=== PATIENT | female | born 1955 ===

== ENCOUNTER 2017-08-15 13:11 | Observation (INO) | payer MEDICAID, OTHER ==
[2017-08-15 15:38] LABS: BASO # 0.1 K/uL (0.0-0.2); BASO % 0.8 % (0.0-2.0); EOS # 0.3 K/uL (0.0-0.7); EOS % 2.3 % (0.0-4.0); LYMPH % 14.1 % (20.0-40.0); MEAN CELL VOLUME 86.6 fl (81.0-99.0); MEAN CORPUSCULAR HEMOGLOBIN 29.3 pg (27.0-31.0); MEAN CORPUSCULAR HGB CONC 33.9 g/dL (33.0-37.0); MEAN PLATELET VOLUME 8.7 fl (7.2-11.7); MONO % 6.9 % (0.0-10.0); NEUT # 10.6 K/uL (1.8-7.0); NEUT % 75.9 % (50.0-75.0); NRBC % 0.1 % (0.0-0.0); RBC 4.76 Mil/uL (3.80-5.20); RED CELL DISTRIBUTION WIDTH 14.2 % (11.5-14.5)
[2017-08-15 15:44] LABS: ALB/GLOB RATIO 1.3 (1.0-2.1); ALBUMIN 4.8 g/dL (3.5-5.0); ALT/SGPT 56 U/L (9-52); AST/SGOT 30 U/L (14-36); BLOOD UREA NITROGEN 18 mg/dl (7-17); GFR AFRICAN-AMERICAN > 60; GFR NON-AFRICAN AMERICAN > 60
[2017-08-15 16:04] LABS: SQUAMOUS EPITHIAL 1 /hpf (0-5); URINE AMORPHOUS SEDIMENT RARE /ul (<OCC); URINE BACTERIA RARE (<OCC); URINE BILIRUBIN NEGATIVE (NEGATIVE); URINE BLOOD MODERATE (NEGATIVE); URINE CLARITY CLOUDY (Clear); URINE COLOR YELLOW (YELLOW); URINE GLUCOSE (UA) NEG (Normal); URINE LEUKOCYTE ESTERASE TRACE Leu/uL (Negative); URINE PROTEIN NEGATIVE (NEGATIVE); URINE UROBILINOGEN 0.2-1.0 mg/dL (0.2-1.0)
--- NOTE | 2017-08-15 16:37 | ED PDOC ---
HPI: Psych/Substance Abuse Time Seen by Provider: 08/15/17 13:14 Chief Complaint (Nursing): Psychiatric Evaluation NIHSS Stroke Scale - Date/Time Evaluation Performed When Was NIHSS Performed: Baseline - How Severe is the Stroke Level of Consciousness: 0=Alert LOC to Questions: 0=Both comments correct LOC to commands: 0=Obeys both correctly Best Gaze: 0=Normal Visual: 0=No visual loss Facial: 0=Normal Motor Arm - Left: 0=No drift Motor Arm - Right: 0=No drift Motor Leg - Left: 0=No drift Motor Leg - Right: 0=No drift Limb Ataxia: 0=Absent Sensory: 0=Normal Best Language: 0=No aphasia Dysarthia: 0=Normal articulation Extinction & Inattention (Neglect): 0=Normal, no object Score: 0 rTPA Inclusion/Exclusion - Refusal of Treatment Patient Refused Treatment: No - Inclusion Criteria for Altepase Patient is 18 years or Older: Yes The Clinical Diagnosis of Ischemic Stroke That is Causing a Potentially Disabling Neurological Deficit: No Time of Onset is Well Established to be Less Than 270 Minute Before Treatment Would Begin: No Past Medical History Vital Signs: Last Vital Signs Temp 98.0 F 08/15/17 13:14 Pulse 97 H 08/15/17 13:14 Resp 18 08/15/17 13:14 BP 155/80 H 08/15/17 13:14 Pulse Ox 95 08/15/17 13:14 - Medical History PMH: Anxiety, Depression Denies: Chronic Kidney Disease - Immunization History Hx Tetanus Toxoid Vaccination: No Hx Influenza Vaccination: No Hx Pneumococcal Vaccination: No - Home Medications Home Medications: Ambulatory Orders Medication Instructions Recorded Benztropine Mesylate [Cogentin] 1 tab PO DAILY 12/19/13 Risperidone [Risperdal] 1 tab PO DAILY 12/19/13 Sertraline [Zoloft] 1 tab PO DAILY 12/19/13 - Allergies Allergies/Adverse Reactions: Allergies Allergy/AdvReac Type Severity Reaction Status Date / Time No Known Allergies Allergy Verified 12/19/13 11:43 - Laboratory Results Result Diagrams: 08/15/17 15:30 08/15/17 15:30 - ECG O2 Sat by Pulse Oximetry: 95 Disposition - Clinical Impression Clinical Impression: Altered mental status - Patient ED Disposition Is Patient to be Admitted: Yes - Disposition Forms: Possible Web ([place]i)
--- NOTE | 2017-08-15 21:59 | CT ---
EXAM: CT Head Without Intravenous Contrast CLINICAL HISTORY: 62 years old, female; Screening exam; Additional info: AMS TECHNIQUE: Axial computed tomography images of the head/brain without intravenous contrast. All CT scans at this facility use one or more dose reduction techniques, viz.: automated exposure control; ma/kV adjustment per patient size (including targeted exams where dose is matched to indication; i.e. head); or iterative reconstruction technique. Coronal and sagittal reformatted images were created and reviewed. COMPARISON: No relevant prior studies available. FINDINGS: Brain: Bilateral white matter changes. This is nonspecific and may include microangiopathic disease, small lacunae of indeterminate chronicity, chronic infarcts and/or encephalomalacia. No hemorrhage. No edema. Ventricles: No hydrocephalus. Bones: Skull is intact. Sinuses: No acute sinusitis. Mastoid air cells: No mastoid effusion. IMPRESSION: No CT evidence of acute intracranial abnormality. Bilateral white matter changes. This is nonspecific and may include microangiopathic disease, small lacunae of indeterminate chronicity, chronic infarcts and/or encephalomalacia. Acute infarcts/early ischemic changes may not be detectable by this modality; MRI is more sensitive in detecting acute ischemia.
--- NOTE | 2017-08-16 10:37 | CARD ---
APPROVED REPORT EKG Measurement Heart [id number] <Conclusion> Normal sinus rhythm Minimal voltage criteria for LVH, may be normal variant Borderline ECG
--- NOTE | 2017-08-16 23:32 | CP.PCM.HP ---
History of Present Illness - History of Present Illness History of Present Illness: This is a 62 y/o female admitted for altered mental status She was initially seen at [facility] and was referred to [facility] but noted to have more altered mentation hence admitted. She has been on sertraline Cogentin and risperdal. Past Patient History - Past Medical History & Family History Past Medical History?: No - Past Social History Smoking Status: Never Smoked - CARDIAC Hx Cardiac Disorders: No - PULMONARY Hx Respiratory Disorders: No - NEUROLOGICAL Hx Neurological Disorder: No - HEENT Hx HEENT Problems: No - RENAL Hx Chronic Kidney Disease: No - ENDOCRINE/METABOLIC Hx Endocrine Disorders: No - HEMATOLOGICAL/ONCOLOGICAL Hx Blood Disorders: No - INTEGUMENTARY Hx Dermatological Problems: No - MUSCULOSKELETAL/RHEUMATOLOGICAL Hx Musculoskeletal Disorders: No Hx Falls: No - GASTROINTESTINAL Hx Gastrointestinal Disorders: No - GENITOURINARY/GYNECOLOGICAL Hx Genitourinary Disorders: No - PSYCHIATRIC Hx Psychophysiologic Disorder: Yes Hx Anxiety: Yes Hx Depression: Yes Hx Schizophrenia: Yes Hx Substance Use: No - SURGICAL HISTORY Hx Surgeries: Yes Hx Mastectomy: Yes (left side) - ANESTHESIA Hx Anesthesia: Yes Hx Anesthesia Reactions: No Meds Allergies/Adverse Reactions: Allergies Allergy/AdvReac Type Severity Reaction Status Date / Time No Known Allergies Allergy Verified 12/19/13 11:43 Results - Vital Signs Recent Vital Signs: Last Vital Signs Temp 98.9 F 08/16/17 19:13 Pulse 99 H 08/16/17 19:13 Resp 20 08/16/17 19:13 BP 154/83 H 08/16/17 19:13 Pulse Ox 95 08/16/17 19:13 - Labs Result Diagrams: 08/15/17 15:30 08/15/17 15:30
--- NOTE | 2017-08-17 11:38 | CP.PCM.PN ---
Subjective - Date & Time of Evaluation Date of Evaluation: 08/17/17 Time of Evaluation: 11:37 - Subjective Subjective: Patient complains of insomnia Objective - Vital Signs/Intake and Output Vital Signs (last 24 hours): Temp Pulse Resp BP Pulse Ox 98.4 F 90 18 147/80 97 08/17/17 08:00 08/17/17 08:00 08/17/17 08:00 08/17/17 08:00 08/17/17 08:00 - Medications Medications: Current Medications Lorazepam (Ativan) 0.5 mg PO Q8H PRN PRN Reason: Anxiety Last Admin: 08/16/17 16:26 Dose: 0.5 mg - Labs Labs: 08/15/17 15:30 08/15/17 15:30
[2017-08-17 12:19] VITALS: O2SAT 96
--- NOTE | 2017-08-17 12:35 | CP.PCM.CON ---
History of Present Illness - History of Present Illness History of Present Illness: information obtained from pt and her sister upon pt consent pt is a 62ys old female with previous diagnosis of depression, reportedly started five years ago when her only son who suffers from mental retardation, left the house to [place] and pt was very worried and depressed, at that time pt was admitted to [facility] , since then pt has been in psychiatric treatment , pt was diagnosed with breast cancer a year ago, had a mastectomy and currently recieving chemotherapy, since then pt became increasingly depressed, poor sleep, poor appetite, low energy and lack of interest, pt was following up with Dr Lin but as per sister has not been compliant with medication for at least two months, on day pt presented to ER she was experiencing suicidal ideations with plan to cut her wrist , pt reported increased anxiety mainly due to inability to sleep, as per sister she has been presenting with memory deficits past year, possible pseudodementia. no reported manic symptoms and no reported substance use Past Patient History - Past Medical History & Family History Past Medical History?: No - Past Social History Smoking Status: Never Smoked - CARDIAC Hx Cardiac Disorders: No - PULMONARY Hx Respiratory Disorders: No - NEUROLOGICAL Hx Neurological Disorder: No - HEENT Hx HEENT Problems: No - RENAL Hx Chronic Kidney Disease: No - ENDOCRINE/METABOLIC Hx Endocrine Disorders: No - HEMATOLOGICAL/ONCOLOGICAL Hx Blood Disorders: No - INTEGUMENTARY Hx Dermatological Problems: No - MUSCULOSKELETAL/RHEUMATOLOGICAL Hx Musculoskeletal Disorders: No Hx Falls: No - GASTROINTESTINAL Hx Gastrointestinal Disorders: No - GENITOURINARY/GYNECOLOGICAL Hx Genitourinary Disorders: No - PSYCHIATRIC Hx Psychophysiologic Disorder: Yes Hx Anxiety: Yes Hx Depression: Yes Hx Schizophrenia: Yes Hx Substance Use: No - SURGICAL HISTORY Hx Surgeries: Yes Hx Mastectomy: Yes (left side) - ANESTHESIA Hx Anesthesia: Yes Hx Anesthesia Reactions: No Meds Allergies/Adverse Reactions: Allergies Allergy/AdvReac Type Severity Reaction Status Date / Time No Known Allergies Allergy Verified 12/19/13 11:43 - Medications Medications: Current Medications Lorazepam (Ativan) 0.5 mg PO Q8H PRN PRN Reason: Anxiety Last Admin: 08/16/17 16:26 Dose: 0.5 mg Physical Exam - Psychiatric Exam Additional comments: interview conducted through translation pt seen in bed, partial eye contact, speech underproductive and slow, depressed mood and anxious affect speech soft and slow with paucity , thought process showing some thought blocking continues to have suicida ideation if she leaves hospital by cutting wrist, denied homicidal ideations alert awake oriented to person and partially to place Results - Vital Signs Recent Vital Signs: Last Vital Signs Temp 98.4 F 08/17/17 08:00 Pulse 90 08/17/17 08:00 Resp 18 08/17/17 08:00 BP 147/80 08/17/17 08:00 Pulse Ox 97 08/17/17 08:00 - Labs Result Diagrams: 08/15/17 15:30 08/15/17 15:30 Assessment & Plan - Assessment and Plan (Free Text) Assessment: major depression recurrent severe rule out /neurocognitive disorder due to depression mood disorder with depressive features due to medical condition Plan: pt at current mental status continues to verbalize suicidal thoughts with plan to cut her wrist due to inability to sleep continue 1:1 precautions for suicidal risk transfer pt to psychiatry for stabilization upon medical clearence
[2017-08-17 12:46] LABS: HEMOGLOBIN 12.5 g/dL (12.0-16.0); MEAN CELL VOLUME 85.9 fl (81.0-99.0); MEAN CORPUSCULAR HGB CONC 33.7 g/dL (33.0-37.0); RBC 4.33 Mil/uL (3.80-5.20); RED CELL DISTRIBUTION WIDTH 13.8 % (11.5-14.5); WHITE BLOOD COUNT 12.8 K/uL (4.8-10.8)
[2017-08-17 13:09] LABS: BLOOD UREA NITROGEN 15 mg/dl (7-17); CALCIUM 9.6 mg/dL (8.4-10.2); GFR AFRICAN-AMERICAN > 60; GFR NON-AFRICAN AMERICAN > 60
--- NOTE | 2017-08-17 15:27 | RAD ---
HISTORY: leukocytosis COMPARISON: 11/29/2012 TECHNIQUE: Chest PA and lateral FINDINGS: LUNGS: No active pulmonary disease. PLEURA: No significant pleural effusion identified. No pneumothorax apparent. CARDIOVASCULAR: No radiographic findings to suggest acute or significant cardiovascular disease. Venous access catheter in satisfactory position. OSSEOUS STRUCTURES: No significant abnormalities. VISUALIZED UPPER ABDOMEN: Normal. OTHER FINDINGS: Prior left mastectomy and axillary node dissection. IMPRESSION: No active disease. No significant interval change.
[2017-08-17 16:12] VITALS: BP 135/83; PULSE 82; RESP 17; TEMP 98.3
== END 2017-08-17 18:20 ==
LOC: H.ER 13:11 → H.ERHOLD 16:28 → H.TEL 22:57
PROVIDERS: ADMIT Family Medicine; ATTEND Family Medicine
DX: F33.2 Major depressive disorder, recurrent severe without psychotic features (principal); G47.00 Insomnia, unspecified; F41.9 Anxiety disorder, unspecified; C50.919 Malignant neoplasm of unspecified site of unspecified female breast; F06.31 Mood disorder due to known physiological condition with depressive features; R45.851 Suicidal ideations; Z91.14 Patient's other noncompliance with medication regimen
CPT/HCPCS: 36415; 70450; 71046; 80048; 80053; 81003; 85025; 85027; 87040; 93005; 96372; 99285; G0378; J1630; J2060

== ENCOUNTER 2017-08-17 18:53 | Inpatient (IN) | payer MEDICAID ==
[2017-08-17] MEDS ORDERED: Bismuth Subsalicylate 262 mg/15 ml Sus (240 ml) PO PRN (19:35)
[2017-08-17] MEDS ORDERED: Alum-Mag Hydrox-Simethicone Susp (30 mL) PO PRN (19:35)
[2017-08-17] MEDS ORDERED: Magnesium Hydroxide Susp 30 ml UD PO PRN (19:35)
--- NOTE | 2017-08-17 19:48 | PCM.BM ---
<TracymagdalenoJoellen - Last Filed: 08/17/17 19:53> Treatment Plan Problems - Problems identified on initial assessmt Hopelessness/Helplessness Date Initiated: 08/17/17 Time Initiated: 19:47 Assessment reference: NA Status: Active Treatment assets and liabiliti Patient Assests: cooperative, good support system, negotiates basic needs Patient Liabilities: medical problems (diagnosed with L Breast Cancer ) - Milieu Protocol Maintain good personal hygiene: daily Encourage regular showers, daily Remind patient to perform daily oral care, daily Assist patient to perform ADL's Maintain personal safety: every shift Educate patient to report safety concerns to staff, every shift Monitor environment for contraband/sharps Medication safety: Monitor for expected outcome, potential side effects: every shift, Assess barriers to learning: every shift, Assess readiness for medication education: every shift <Lisa Sutton - Last Filed: 08/18/17 09:51> - Diagnosis (1) Major depressive disorder Status: Acute Interventions: Medication management, Individual and group therapy, Psychoeducation 08/18/17 09:51 <La Camacho M - Last Filed: 08/19/17 14:06> Family Contact Family involvement: Family/SO is involved Family contact: Patient agrees to contact, Family has been contacted by patient , Telephone contact initiated by staff, Family meeting planned to review treatment plan Family contact name: Ashley - sister & Marvin- Family contacted how many times per week?: 2 - Outside Agency Dr. Chivo Lin MD Care involvment: Information-sharing Agency contact name: Dr. Riley MD Agency contact number: [phone] - Goals for Treatment Patient goals for treatment: Pt to be encouraged to attend activity and clinical groups 3-5x per week to identify at least 2 contributing factors to depression and suicide attempt. Psycho-education to be provided to patient/ family regarding benefits of medications and treatment adherence. Pt to be encouraged to participate in group milieu to develop effective coping skills to reduce depression and free of suicide ideation. Coordinate discharge resource needs by providing referral for psychiatric treatment follow up in the community. Discharge/Continuing Care - Education Needs Education Needs: Family Medication, Family Diagnosis/Disease Process, Family Coping Skills, Family Placement options, Family Community resources, Family Activities of Daily Living, Family Pain, Family Nutrition, Family Personal Hygiene/Grooming, Family Aftercare Safety Plan, Patient Medication, Patient Diagnosis/Disease Process, Patient Coping Skills, Patient Placement options, Patient Community resources, Patient Activities of Daily Living, Patient Pain, Patient Nutrition, Patient Personal Hygiene/Grooming, Patient Aftercare Safety Plan - Discharge Discharge Criteria: Tolerates medication w/o severe side effects, Free of Suicidal thoughts, Free of Homicidal thoughts, Free of agitation, Normal sleep pattern, Ability to care for self, Reduction of target symptoms Discharge to:: Home, With Family - Additional Comments 08/19/17 14:01 Pt seen and discussed in team meeting. Reason for hospitalization reviewed and discussed. Pt reported feeling depressed, anxious and "not good." Pt reported poor sleep. Pt also reported visual hallucinations of "bad spirits." Pt reported she believes in God and when she sees the "bad spirits" she devotes herself to God and prays to God. Pt identified as a practicing Hoahaoism. Pt also reported feeling paranoid at times, believing that people are laughing at her. Pt denied active SI and HI; however, reported having visions of a knife and is afraid to "kill my son and myself." When asked if she has had thoughts of hurting her son and/or herself, pt stated "No, I'm a coward." Pt reported feeling distressed because of "the bad thoughts." Pt became very tearful. Pt's medical and social issues reviewed. Pt's medications reviewed. Tx plan reviewed and discussed. Pt signed written consent for feature writer to contact her sister, Ashley and her , Marvin. Pt also provided feature writer with verbal authorization to contact Dr. Chivo Lin MD. to continue to follow case. - Treatment Team Participation Discussed with Family/SO: Yes (To be reviewed with family during family meeting scheduled for 08/19/17 2pm) Was Patient/Family/SO present at Treatment Team Meeting: Yes
[2017-08-18 06:21] LABS: HEMOGLOBIN 13.3 g/dL (12.0-16.0); MEAN CELL VOLUME 86.2 fl (81.0-99.0); MEAN CORPUSCULAR HEMOGLOBIN 29.1 pg (27.0-31.0); MEAN CORPUSCULAR HGB CONC 33.8 g/dL (33.0-37.0); RBC 4.55 Mil/uL (3.80-5.20); RED CELL DISTRIBUTION WIDTH 13.8 % (11.5-14.5); WHITE BLOOD COUNT 10.6 K/uL (4.8-10.8)
[2017-08-18 06:28] LABS: IRON 71 ug/dL (37-170)
[2017-08-18 06:30] LABS: ALB/GLOB RATIO 1.3 (1.0-2.1); ALBUMIN 4.4 g/dL (3.5-5.0); ALT/SGPT 43 U/L (9-52); AST/SGOT 25 U/L (14-36); BLOOD UREA NITROGEN 13 mg/dl (7-17); CALCIUM 9.8 mg/dL (8.4-10.2); GFR AFRICAN-AMERICAN > 60; GFR NON-AFRICAN AMERICAN > 60; HDL CHOLESTEROL 88 MG/DL (30-70)
[2017-08-18 06:38] LABS: % IRON SATURATION 22 % (20-55); TOTAL IRON BINDING CAPACITY 327 ug/dL (250-450)
[2017-08-18 06:42] LABS: LDL CHOLESTEROL 106 mg/dL (0-129)
[2017-08-18 06:44] LABS: T4 8.04 ug/dl (5.5-11.0)
[2017-08-18 07:00] LABS: FERRITIN 57.4 ng/Ml (11.1-264.0)
--- NOTE | 2017-08-18 09:59 | PCM.PSYCH ---
Initial Psychiatric Evaluation - Initial Psychiatric Evaluation Type of Admission: Voluntary Legal Status: Capacity Chief Complaint (in patient's own words): "I don't want to hurt myself." Patient's Reaction to Hospitalization: HPI: 62 yo female w/ h/o depression, non-complaint with treatment, presents with worsening depression and suicidal ideation to cut her wrists. She is able to contract for safety at this time. She feels very anxious and is worried that she will hurt herself or someone else. +Poor sleep/poor appetite/ low energy/ lack of interest. Denies AH/VH/paranoia PPHx: H/o depression and tx w/ Dr. Lin; was on Zoloft, Risperdal and Cogentin in the past; currently not compliant with treatment PMHx: Breast CA s/p mastectomy, currently receiving chemotherapy SHx: From [place]; lives w/ sister; denies drugs/etoh ALL: NKDA Current Medications: Active Medications Generic Name Dose Route Start Last Admin Trade Name Freq PRN Reason Stop Dose Admin Acetaminophen 650 mg 08/17/17 19:35 Tylenol 325mg Tab PO Q4 PRN Pain, moderate (4-7) Al Hydrox/Mg Hydrox/Simethicone 30 ml 08/17/17 19:35 Maalox Plus 30 Ml PO Q4 PRN Dyspepsia Bismuth Subsalicylate 524 mg 08/17/17 19:35 Pepto-Bismol PO Q4 PRN Diarrhea Lorazepam 0.5 mg 08/17/17 19:35 08/17/17 23:47 Ativan PO 08/31/17 19:36 0.5 mg HS PRN Administration Insomnia Lorazepam 0.5 mg 08/17/17 19:35 Ativan PO 08/31/17 19:36 Q6 PRN Anixety/Agitation Magnesium Hydroxide 30 ml 08/17/17 19:35 Milk Of Magnesia PO HS PRN Constipation Sertraline HCl 50 mg 08/18/17 09:45 Zoloft PO DAILY GREGG Past Psychiatric History - Past Psychiatric History Pertinent Medical Hx (Current Medical&Sleep Prob, Allergies): Allergies Allergy/AdvReac Type Severity Reaction Status Date / Time No Known Allergies Allergy Verified 12/19/13 11:43 Benztropine Mesylate [Cogentin] 1 tab PO DAILY 12/19/13 Risperidone [Risperdal] 1 tab PO DAILY 12/19/13 Sertraline [Zoloft] 1 tab PO DAILY 12/19/13 Review of Systems - Psychiatric Psychiatric: As Per HPI, Abnormal Sleep Pattern, Anhedonia, Anxiety, Behavioral Changes, Change in Appetite, Depression, Difficulty Concentrating, Hopelessness , Memory Loss, Mood Swings, Suicidal Ideation Mental Status Examination - Personal Presentation Personal Presentation: Looks older than stated age - Affect Affect: Constricted, Depressed - Motor Activity Motor Activity: Psychomotor Retardation - Reliability in Providing Information Reliability in Providing Information: Poor, due to altered mood, Poor, due to cognitve impairment - Speech Speech: Coherent - Mood Mood: Depressed, Anxious - Formal Thought Process Formal Thought Process: Loosening of associations - Hallucinations/Delusions Additional comments: Denies AH/VH/paranoia - Obsessions/Compulsions Obsessions: No Compulsions: No - Cognitive Functions Sensorium: Alert Judgement: Intact, as evidence by: Insight regarding need for hospitalization Memory: Recent impaired, as evidence by: Inability to recall events of the day, Recent imparied as evidence by:Inability to complete 3/3 object recall - Risk Risk: Diminished functioning - Strength & Assets Inventory Strength & Assets Inventory: Family support, Cooperative - Limitations Limitations: Decreased memory, recent DSM 5 DX - DSM 5 DSM 5 Diagnosis: Major Depressive Disorder; r/o Neurocognitive impairment - Recommended/Plan of Treatment Treatment Recommendations and Plan of Treatment: Major Depressive Disorder; r/o Neurocognitive impairment -Admit to geriatric psychiatry unit -Individual and group therapy -Medicine consult -Start Remeron 15 mg PO HS -Disposition planning -Dietary consult Projected ELOS: 5-10 days Discharge Plan and Discharge Criteria: Discharge when patient is psychiatrically stable - Smoking Cessation Smoking Cessation Initiated: No Reason for not providing: Not indicated
--- NOTE | 2017-08-18 10:21 | CP.PCM.CON ---
History of Present Illness - History of Present Illness History of Present Illness: HPI: 62 y/o woman w/ pmh of breast CA s/p mastectomy on chemotherapy, anxiety and depression admitted to psychiatry for major depression and suicidal/ homicidal ideation. Patient was discharged from [facility] after medically stabilized due to altered mental status. Patient has been non-adherent to psychiatric medication for some time. Patient expresses thoughts of harming herself or others w/ a kitchen knife. The patient reports insomnia, low energy , low appetite. The patient denies auditory/visual hallucinations or delusions. The patient denies headaches, chest pain, SOB, abdominal pain, nausea, vomiting, diarrhea, dysuria, or fever. PMD: Dr. Lin PMH: breast CA s/p left mastectomy on chemotherapy, anxiety and depression meds: see med list Allergies: NKDA PSH: left mastectomy Fam: denies SOC: denies smoking, alcohol, and drugs ROS: 12 points assessed and negative unless otherwise reported in HPI Review of Systems - Review of Systems All systems: reviewed and no additional remarkable complaints except - Constitutional Constitutional: absent: Chills, Fever - EENT Eyes: absent: Change in Vision - Cardiovascular Cardiovascular: absent: Chest Pain - Respiratory Respiratory: absent: Dyspnea - Gastrointestinal Gastrointestinal: absent: Abdominal Pain, Diarrhea, Nausea, Vomiting - Genitourinary Genitourinary: absent: Dysuria - Integumentary Integumentary: absent: Rash - Psychiatric Psychiatric: As Per HPI Past Patient History - Past Medical History & Family History Past Medical History?: No - Past Social History Smoking Status: Never Smoked - CARDIAC Hx Cardiac Disorders: No - PULMONARY Hx Respiratory Disorders: No - NEUROLOGICAL Hx Neurological Disorder: No - HEENT Hx HEENT Problems: No - RENAL Hx Chronic Kidney Disease: No - ENDOCRINE/METABOLIC Hx Endocrine Disorders: No - HEMATOLOGICAL/ONCOLOGICAL Hx Blood Disorders: No - INTEGUMENTARY Hx Dermatological Problems: No - MUSCULOSKELETAL/RHEUMATOLOGICAL Hx Musculoskeletal Disorders: No Hx Falls: No - GASTROINTESTINAL Hx Gastrointestinal Disorders: No - GENITOURINARY/GYNECOLOGICAL Hx Genitourinary Disorders: No - PSYCHIATRIC Hx Psychophysiologic Disorder: Yes Hx Anxiety: Yes Hx Depression: Yes Hx Schizophrenia: Yes Hx Substance Use: No - SURGICAL HISTORY Hx Surgeries: Yes Hx Mastectomy: Yes (left side) - ANESTHESIA Hx Anesthesia: Yes Hx Anesthesia Reactions: No Meds Allergies/Adverse Reactions: Allergies Allergy/AdvReac Type Severity Reaction Status Date / Time No Known Allergies Allergy Verified 12/19/13 11:43 - Medications Medications: Current Medications Acetaminophen (Tylenol 325mg Tab) 650 mg PO Q4 PRN PRN Reason: Pain, moderate (4-7) Al Hydrox/Mg Hydrox/Simethicone (Maalox Plus 30 Ml) 30 ml PO Q4 PRN PRN Reason: Dyspepsia Bismuth Subsalicylate (Pepto-Bismol) 524 mg PO Q4 PRN PRN Reason: Diarrhea Lorazepam (Ativan) 0.5 mg PO HS PRN PRN Reason: Insomnia Stop: 08/31/17 19:36 Last Admin: 08/17/17 23:47 Dose: 0.5 mg Lorazepam (Ativan) 0.5 mg PO Q6 PRN PRN Reason: Anixety/Agitation Stop: 08/31/17 19:36 Magnesium Hydroxide (Milk Of Magnesia) 30 ml PO HS PRN PRN Reason: Constipation Mirtazapine (Remeron) 15 mg PO HS GREGG Physical Exam - Constitutional Appears: Non-toxic, No Acute Distress - Head Exam Head Exam: ATRAUMATIC, NORMAL INSPECTION, NORMOCEPHALIC - Eye Exam Eye Exam: Normal appearance - ENT Exam ENT Exam: Mucous Membranes Moist - Neck Exam Neck exam: Positive for: Full Rom. Negative for: Tenderness - Respiratory Exam Respiratory Exam: Clear to Auscultation Bilateral. absent: Accessory Muscle Use , Decreased Breath Sounds, Rales, Rhonchi, Wheezes, Respiratory Distress - Cardiovascular Exam Cardiovascular Exam: REGULAR RHYTHM. absent: Tachycardia - GI/Abdominal Exam GI & Abdominal Exam: Normal Bowel Sounds, Soft. absent: Distended, Tenderness - Extremities Exam Extremities exam: Negative for: calf tenderness, pedal edema, tenderness - Neurological Exam Neurological exam: Alert, Oriented x3 - Psychiatric Exam Psychiatric exam: Depressed, Flat Affect, Suicidal Ideation - Skin Skin Exam: Dry, Intact, Normal Color, Warm Results - Vital Signs Recent Vital Signs: Last Vital Signs Temp 97.5 F L 08/18/17 05:59 Pulse 73 08/18/17 05:59 Resp 19 08/18/17 05:59 BP 150/78 08/18/17 05:59 Pulse Ox - Labs Result Diagrams: 08/18/17 05:30 08/18/17 05:30 Labs: Laboratory Results - last 24 hr 08/18/17 08/18/17 08/18/17 05:30 05:30 05:30 WBC 10.6 RBC 4.55 Hgb 13.3 Hct 39.3 MCV 86.2 MCH 29.1 MCHC 33.8 RDW 13.8 Plt Count 303 Sodium 135 Potassium 4.1 Chloride 96 L Carbon Dioxide 25 Anion Gap 18 BUN 13 Creatinine 0.6 L Est GFR ( Amer) > 60 Est GFR (Non-Af Amer) > 60 Random Glucose 120 H Calcium 9.8 Iron 71 TIBC 327 % Saturation 22 Ferritin 57.4 Total Bilirubin 0.7 AST 25 ALT 43 Alkaline Phosphatase 90 Total Protein 7.8 Albumin 4.4 Globulin 3.4 Albumin/Globulin Ratio 1.3 Triglycerides 74 Cholesterol 229 H LDL Cholesterol Direct 106 HDL Cholesterol 88 H Vitamin B12 340 Free T4 Thyroxine (T4) 8.04 TSH 3rd Generation 1.91 08/18/17 05:30 WBC RBC Hgb Hct MCV MCH MCHC RDW Plt Count Sodium Potassium Chloride Carbon Dioxide Anion Gap BUN Creatinine Est GFR ( Amer) Est GFR (Non-Af Amer) Random Glucose Calcium Iron TIBC % Saturation Ferritin Total Bilirubin AST ALT Alkaline Phosphatase Total Protein Albumin Globulin Albumin/Globulin Ratio Triglycerides Cholesterol LDL Cholesterol Direct HDL Cholesterol Vitamin B12 Free T4 1.18 Thyroxine (T4) TSH 3rd Generation Assessment & Plan (1) Suicidal ideation Status: Acute (2) Major depressive disorder Status: Acute - Assessment and Plan (Free Text) Plan: c/w present management as per psychiatry afebrile, non-tachycardic, normotensive c/w psychotherapy monitor for acute changes
[2017-08-18 13:03] LABS: FOLATE 10.6 ng/mL
[2017-08-18 17:06] VITALS: BMI 21.2
--- NOTE | 2017-08-19 08:26 | CP.PCM.PN ---
Subjective - Date & Time of Evaluation Date of Evaluation: 08/19/17 Time of Evaluation: 09:14 - Subjective Subjective: Patient seen and examined this morning at bedside w/ Dr. Samaniego. There are no acute events overnight, NAD. Patient is in a better mood today. Patient ate breakfast and was able to sleep. The patient has no other complaints. Objective - Vital Signs/Intake and Output Vital Signs (last 24 hours): Temp Pulse Resp BP Pulse Ox 97.5 F L 81 19 137/76 08/19/17 06:00 08/19/17 06:00 08/19/17 06:00 08/19/17 06:00 - Medications Medications: Current Medications Acetaminophen (Tylenol 325mg Tab) 650 mg PO Q4 PRN PRN Reason: Pain, moderate (4-7) Al Hydrox/Mg Hydrox/Simethicone (Maalox Plus 30 Ml) 30 ml PO Q4 PRN PRN Reason: Dyspepsia Bismuth Subsalicylate (Pepto-Bismol) 524 mg PO Q4 PRN PRN Reason: Diarrhea Lorazepam (Ativan) 0.5 mg PO HS PRN PRN Reason: Insomnia Stop: 08/31/17 19:36 Last Admin: 08/17/17 23:47 Dose: 0.5 mg Lorazepam (Ativan) 0.5 mg PO Q6 PRN PRN Reason: Anixety/Agitation Stop: 08/31/17 19:36 Last Admin: 08/18/17 10:12 Dose: 0.5 mg Magnesium Hydroxide (Milk Of Magnesia) 30 ml PO HS PRN PRN Reason: Constipation Mirtazapine (Remeron) 15 mg PO HS GREGG Last Admin: 08/18/17 21:16 Dose: 15 mg - Labs Labs: 08/18/17 05:30 08/18/17 05:30 - Constitutional Appears: Non-toxic, No Acute Distress - Head Exam Head Exam: ATRAUMATIC, NORMAL INSPECTION, NORMOCEPHALIC - Eye Exam Eye Exam: Normal appearance - ENT Exam ENT Exam: Mucous Membranes Moist - Neck Exam Neck Exam: Full ROM. absent: Tenderness - Respiratory Exam Respiratory Exam: Clear to Ausculation Bilateral. absent: Accessory Muscle Use , Decreased Breath Sounds, Rales, Rhonchi, Wheezes, Respiratory Distress - Cardiovascular Exam Cardiovascular Exam: REGULAR RHYTHM. absent: Tachycardia - GI/Abdominal Exam GI & Abdominal Exam: Soft, Normal Bowel Sounds. absent: Distended, Tenderness - Extremities Exam Extremities Exam: absent: Calf Tenderness, Pedal Edema, Tenderness - Neurological Exam Neurological Exam: Alert, Awake, Normal Gait, Oriented x3 - Skin Skin Exam: Dry, Intact, Normal Color, Warm Assessment and Plan (1) Suicidal ideation Status: Acute (2) Major depressive disorder Status: Acute - Assessment and Plan (Free Text) Plan: c/w present management as per psychiatry afebrile, non-tachycardic, normotensive c/w psychotherapy monitor for acute changes
--- NOTE | 2017-08-19 10:21 | PCM.PYCHPN ---
Psychiatric Progress Note - Psychiatric Progress Note Patient seen today, length of contact: Patient evaluated, case discussed with team, chart reviewed Patient Chief Complaint: "I don't want to hurt myself." Problems Identified/Issues Discussed: Patient continues to report feeling depressed. She is worried that she will try to harm herself or someone else, but denies active ideation/plan/intent. She reports that she sees bad spirits and knives. She is tearful, labile and non-linear at times during the conversation. She reports that Remeron cause bucal tingling, so we discussed stopping this medication and restarting her on Zoloft. We also discussed starting Seroquel. Medication Change: Yes (Stop Remeron, start Seroquel and Zoloft) Medical Record Reviewed: Yes Consults ordered or reviewed: Medicine consult Mental Status Examination - Cognitive Function Orientation: Person, Place, Situation, Time ("2017") Memory: Impaired Association: Loose Fund of Knowledge: WNL Decription of patient's judgement and insights: Poor I/J - Mood Mood: Depressed, Anxious - Affect Affect: Constricted, Depressed - Formal Thought Process Formal Thought Process: Hallucinations, Loosening of associations Psychotic Thoughts and Behaviors: +VH - Suicidal Ideation Suicidal Ideation: No - Homicidal Ideation Homicidal Ideation: No Goal/Treatment Plan - Goal/Treatment Plan Need for Continued Stay: Remain at risks for inpatient hospitalization, Severe depression anxiety, Discharge may exacerbated symptoms Progress Toward Problem(s) and Goals/Treatment Plan: Major Depressive Disorder w/ Psychotic Features; r/o Neurocognitive impairment -Individual and group therapy -Medicine consult -Stop Remeron; Start Zoloft and Seroquel -Disposition planning -Obtain collateral history -Dietary consult Estimated Date of D/C: 08/24/17
[2017-08-20 07:45] LABS: BASO # 0.1 K/uL (0.0-0.2); BASO % 0.9 % (0.0-2.0); EOS # 0.2 K/uL (0.0-0.7); EOS % 1.6 % (0.0-4.0); HEMOGLOBIN 12.3 g/dL (12.0-16.0); LYMPH # 1.8 K/uL (1.0-4.3); LYMPH % 18.7 % (20.0-40.0); MEAN CELL VOLUME 85.4 fl (81.0-99.0); MEAN CORPUSCULAR HEMOGLOBIN 29.2 pg (27.0-31.0); MEAN CORPUSCULAR HGB CONC 34.2 g/dL (33.0-37.0); MEAN PLATELET VOLUME 8.9 fl (7.2-11.7); MONO # 0.8 K/uL (0.0-0.8); MONO % 7.7 % (0.0-10.0); NEUT # 7.1 K/uL (1.8-7.0); NEUT % 71.1 % (50.0-75.0); RBC 4.21 Mil/uL (3.80-5.20); RED CELL DISTRIBUTION WIDTH 13.9 % (11.5-14.5); WHITE BLOOD COUNT 9.9 K/uL (4.8-10.8)
[2017-08-20 08:05] LABS: ALB/GLOB RATIO 1.3 (1.0-2.1); ALT/SGPT 43 U/L (9-52); AST/SGOT 26 U/L (14-36); BLOOD UREA NITROGEN 16 mg/dl (7-17); CALCIUM 9.4 mg/dL (8.4-10.2); GFR AFRICAN-AMERICAN > 60; GFR NON-AFRICAN AMERICAN > 60
--- NOTE | 2017-08-20 12:28 | PCM.PYCHPN ---
Psychiatric Progress Note - Psychiatric Progress Note Patient seen today, length of contact: Patient evaluated, case discussed with team, chart reviewed Patient Chief Complaint: "I don't want to hurt myself." Problems Identified/Issues Discussed: Patient continues to report feeling depressed. No current ideation to harm self or others. No adverse effects to medications reported. +Intermittent VH of spirits. Medication Change: No Medical Record Reviewed: Yes Consults ordered or reviewed: Medicine consult Mental Status Examination - Cognitive Function Orientation: Person, Place, Situation, Time ("2017") Memory: Impaired Association: Loose Fund of Knowledge: WNL Decription of patient's judgement and insights: Poor I/J - Mood Mood: Depressed, Anxious - Affect Affect: Constricted, Depressed - Formal Thought Process Formal Thought Process: Hallucinations, Loosening of associations Psychotic Thoughts and Behaviors: +VH - Suicidal Ideation Suicidal Ideation: No - Homicidal Ideation Homicidal Ideation: No Goal/Treatment Plan - Goal/Treatment Plan Need for Continued Stay: Remain at risks for inpatient hospitalization, Severe depression anxiety, Discharge may exacerbated symptoms Progress Toward Problem(s) and Goals/Treatment Plan: Major Depressive Disorder w/ Psychotic Features; r/o Neurocognitive impairment -Individual and group therapy -Medicine consult -Continue Zoloft and Seroquel -Disposition planning -Obtain collateral history -Dietary consult Estimated Date of D/C: 08/24/17
--- NOTE | 2017-08-21 12:31 | PCM.PYCHPN ---
Psychiatric Progress Note - Psychiatric Progress Note Patient seen today, length of contact: Patient evaluated, case discussed with team, chart reviewed Patient Chief Complaint: "I'm anxious." Problems Identified/Issues Discussed: Patient continues to report feeling depressed and anxious. No current ideation to harm self or others. No adverse effects to medications reported. No current AH/VH, but patient seem confused at times and selectively stops speaking. Medication Change: Yes (Start Namenda) Medical Record Reviewed: Yes Consults ordered or reviewed: Medicine consult, Psychology consult Mental Status Examination - Cognitive Function Orientation: Person, Place, Situation, Time ("2017") Memory: Impaired Association: Loose Fund of Knowledge: WNL Decription of patient's judgement and insights: Poor I/J - Mood Mood: Depressed, Anxious - Affect Affect: Constricted, Depressed - Formal Thought Process Formal Thought Process: Loosening of associations Psychotic Thoughts and Behaviors: No acute AH/VH/paranoia - Suicidal Ideation Suicidal Ideation: No - Homicidal Ideation Homicidal Ideation: No Goal/Treatment Plan - Goal/Treatment Plan Need for Continued Stay: Remain at risks for inpatient hospitalization, Severe depression anxiety, Discharge may exacerbated symptoms Progress Toward Problem(s) and Goals/Treatment Plan: Major Depressive Disorder w/ Psychotic Features; r/o Neurocognitive impairment -Individual and group therapy -Medicine consult -Continue Zoloft and Seroquel -Start Namenda -Disposition planning -Obtain collateral history -Dietary consult Estimated Date of D/C: 08/25/17
--- NOTE | 2017-08-22 11:03 | PCM.PYCHPN ---
Psychiatric Progress Note - Psychiatric Progress Note Patient seen today, length of contact: Patient evaluated, case discussed with team, chart reviewed Patient Chief Complaint: pt seen about unit, approaching desk, asking for telephone numbers of family, reportedly pt has been anxious pacing. pt has been adherent with medications, denies side effects of medications. staff report pt is less paranoid psychotic. denies further hearing voices. Problems Identified/Issues Discussed: alteration in mood alteration cognition Medical Problems: per chart pt being followed by dr cagle/residents Diagnostic Results: per psychiatry per medicine per nursing per social work per chart DSM 5 Symptoms Update: less anxious less paranoid Medication Change: Yes (Start Namenda) Medical Record Reviewed: Yes Consults ordered or reviewed: per chart Mental Status Examination - Cognitive Function Orientation: Person, Place, Situation, Time ("2017") Memory: Impaired Association: Loose Fund of Knowledge: WNL Decription of patient's judgement and insights: impaired - Mood Mood: Depressed, Anxious - Affect Affect: Constricted, Depressed - Formal Thought Process Formal Thought Process: Loosening of associations - Suicidal Ideation Suicidal Ideation: No - Homicidal Ideation Homicidal Ideation: No Goal/Treatment Plan - Goal/Treatment Plan Need for Continued Stay: Remain at risks for inpatient hospitalization, Severe depression anxiety, Discharge may exacerbated symptoms Progress Toward Problem(s) and Goals/Treatment Plan: inpt admission vital signs and clinical observation per status per protocol adjust meds per status on going assessment/milieu therapy discharge planning in progress Estimated Date of D/C: 08/25/17 - Smoking Cessation Smoking Cessation Initiated: No Reason for not providing: pt deferred
--- NOTE | 2017-08-23 12:43 | PCM.PYCHPN ---
Psychiatric Progress Note - Psychiatric Progress Note Patient seen today, length of contact: Patient evaluated, case discussed with team, chart reviewed Patient Chief Complaint: pt seen about unit, approaching desk multiple times asking to make phone calls, was observed by staff to be talking to on phone. asking for telephone numbers of family, reportedly pt has been anxious pacing. pt has been adherent with medications, denies side effects of medications. staff report pt is less paranoid psychotic. denies further hearing voices. Problems Identified/Issues Discussed: alteration in mood alteration cognition Medical Problems: per chart pt being followed by dr cagle/residents Diagnostic Results: per psychiatry per medicine per nursing per social work per chart DSM 5 Symptoms Update: depression anxiety somewhat improving per pt and staff Medication Change: No Medical Record Reviewed: Yes Consults ordered or reviewed: pt seen by gurjit/jacqueline Mental Status Examination - Cognitive Function Orientation: Person, Place, Situation, Time ("2018") Memory: Impaired Association: Loose Fund of Knowledge: WNL Decription of patient's judgement and insights: impaired - Mood Mood: Depressed, Anxious - Affect Affect: Constricted, Depressed - Formal Thought Process Formal Thought Process: Loosening of associations - Suicidal Ideation Suicidal Ideation: No - Homicidal Ideation Homicidal Ideation: No Goal/Treatment Plan - Goal/Treatment Plan Need for Continued Stay: Remain at risks for inpatient hospitalization, Severe depression anxiety, Discharge may exacerbated symptoms Progress Toward Problem(s) and Goals/Treatment Plan: inpt admission vital signs and clinical observation per status per protocol adjust meds per status on going assessment/milieu therapy discharge planning in progress Estimated Date of D/C: 08/25/17 - Smoking Cessation Smoking Cessation Initiated: No Reason for not providing: pt defers
--- NOTE | 2017-08-24 10:56 | PCM.PYCHPN ---
Psychiatric Progress Note - Psychiatric Progress Note Patient seen today, length of contact: Patient evaluated, case discussed with team, chart reviewed Patient Chief Complaint: "I'm anxious." Problems Identified/Issues Discussed: Patient is very anxious and preoccupied that she will lose her insurance, that she won't get fed meals in the hospital because she does not know how to order the meal correctly and that someone called the police on her. She continues to report feeling depressed. She has non-linear speech at times and is labile. Medication Change: Yes (Increase Seroquel) Medical Record Reviewed: Yes Consults ordered or reviewed: Medicine consult, Psychology consult Mental Status Examination - Cognitive Function Orientation: Person, Place, Situation, Time ("2017") Memory: Impaired Association: Loose Fund of Knowledge: WNL Decription of patient's judgement and insights: Poor I/J - Mood Mood: Depressed, Anxious - Affect Affect: Constricted, Depressed - Formal Thought Process Formal Thought Process: Paranoia, Loosening of associations Psychotic Thoughts and Behaviors: +Paranoia - Suicidal Ideation Suicidal Ideation: No - Homicidal Ideation Homicidal Ideation: No Goal/Treatment Plan - Goal/Treatment Plan Need for Continued Stay: Remain at risks for inpatient hospitalization, Severe depression anxiety, Discharge may exacerbated symptoms Progress Toward Problem(s) and Goals/Treatment Plan: Major Depressive Disorder w/ Psychotic Features; r/o Neurocognitive impairment -Individual and group therapy -Medicine consult -Continue Zoloft -Increase Seroquel -Continue Namenda -Disposition planning -Obtain collateral history -Dietary consult Estimated Date of D/C: 08/28/17
--- NOTE | 2017-08-25 08:30 | PCM.PYCHPN ---
Psychiatric Progress Note - Psychiatric Progress Note Patient seen today, length of contact: Patient evaluated, case discussed with team, chart reviewed Patient Chief Complaint: "I'm anxious." Problems Identified/Issues Discussed: Patient continues to be anxious, w/ disorganized speech at times and paranoia. She is pleasant and calm towards documentation writer, but is labile and easily upset. Medication Change: Yes (Increase Seroquel) Medical Record Reviewed: Yes Consults ordered or reviewed: Medicine consult, Psychology consult Mental Status Examination - Cognitive Function Orientation: Person, Place, Situation, Time ("2018") Memory: Impaired Association: Loose Fund of Knowledge: WNL Decription of patient's judgement and insights: Poor I/J - Mood Mood: Depressed, Anxious - Affect Affect: Constricted, Depressed - Formal Thought Process Formal Thought Process: Paranoia, Loosening of associations Psychotic Thoughts and Behaviors: +Paranoia - Suicidal Ideation Suicidal Ideation: No - Homicidal Ideation Homicidal Ideation: No Goal/Treatment Plan - Goal/Treatment Plan Need for Continued Stay: Remain at risks for inpatient hospitalization, Severe depression anxiety, Discharge may exacerbated symptoms Progress Toward Problem(s) and Goals/Treatment Plan: Major Depressive Disorder w/ Psychotic Features; r/o Neurocognitive impairment -Individual and group therapy -Medicine consult -Continue Zoloft -Increase Seroquel -Disposition planning -Dietary consult Estimated Date of D/C: 08/28/17
[2017-08-25] MEDS: QUEtiapine 300 MG TABLET PO SCH (21:30)
--- NOTE | 2017-08-26 09:27 | PCM.PYCHPN ---
Psychiatric Progress Note - Psychiatric Progress Note Patient seen today, length of contact: Patient evaluated, case discussed with team, chart reviewed Patient Chief Complaint: "I'm anxious." Problems Identified/Issues Discussed: Patient continues to be anxious, w/ tangential non-linear speech and paranoia. She expressed worries that she doesn't want to take a shower because she is worried that the water will burn her skin (not referring to the temperature). She also continues to have visions of knives and is worried about harming her son, although she denies actual ideation/plan/intent. She reports poor appetite, but has been observed eating sufficient meals. Medication Change: Yes (Increase Seroquel) Medical Record Reviewed: Yes Consults ordered or reviewed: Medicine consult, Psychology consult Mental Status Examination - Cognitive Function Orientation: Person, Place Memory: Impaired Association: Loose Fund of Knowledge: WNL Decription of patient's judgement and insights: Poor I/J - Mood Mood: Depressed, Anxious - Affect Affect: Constricted, Depressed - Formal Thought Process Formal Thought Process: Hallucinations, Paranoia, Loosening of associations Psychotic Thoughts and Behaviors: +Paranoia - Suicidal Ideation Suicidal Ideation: No - Homicidal Ideation Homicidal Ideation: No Goal/Treatment Plan - Goal/Treatment Plan Need for Continued Stay: Remain at risks for inpatient hospitalization, Severe depression anxiety, Discharge may exacerbated symptoms Progress Toward Problem(s) and Goals/Treatment Plan: Major Depressive Disorder w/ Psychotic Features; r/o Neurocognitive impairment -Individual and group therapy -Medicine consult -Continue Zoloft -Increase Seroquel -Disposition planning -Dietary consult Estimated Date of D/C: 08/31/17
--- NOTE | 2017-08-26 13:53 | PCM.BM ---
Treatment Plan Problems - Problems identified on initial assessmt Hopelessness/Helplessness Date Initiated: 08/17/17 Time Initiated: 19:47 Assessment reference: NA Status: Active Treatment assets and liabiliti Patient Assests: cooperative, good support system, negotiates basic needs Patient Liabilities: medical problems (diagnosed with L Breast Cancer ) - Milieu Protocol Maintain good personal hygiene: daily Encourage regular showers, daily Remind patient to perform daily oral care, daily Assist patient to perform ADL's Maintain personal safety: every shift Educate patient to report safety concerns to staff, every shift Monitor environment for contraband/sharps Medication safety: Monitor for expected outcome, potential side effects: every shift, Assess barriers to learning: every shift, Assess readiness for medication education: every shift Milieu Narrative: Major Depressive Disorder w/ Psychotic Features; r/o Neurocognitive impairment -Individual and group therapy -Medicine consult -Continue Zoloft -Increase Seroquel -Disposition planning -Dietary consult Family Contact Family involvement: Family/SO is involved Family contact: Patient agrees to contact, Family has been contacted by patient , Telephone contact initiated by staff, Family meeting planned to review treatment plan Family contact name: Ashley - sister Family contacted how many times per week?: 2 - Outside Agency Dr. Chivo Lin MD Care involvment: Information-sharing Agency contact name: Dr. Riley MD Agency contact number: [phone] - Goals for Treatment Patient goals for treatment: "I can't think like this anymore." Discharge/Continuing Care - Education Needs Education Needs: Family Medication, Family Diagnosis/Disease Process, Family Coping Skills, Family Placement options, Family Community resources, Family Activities of Daily Living, Family Pain, Family Nutrition, Family Personal Hygiene/Grooming, Family Aftercare Safety Plan, Patient Medication, Patient Diagnosis/Disease Process, Patient Coping Skills, Patient Placement options, Patient Community resources, Patient Activities of Daily Living, Patient Pain, Patient Nutrition, Patient Personal Hygiene/Grooming, Patient Aftercare Safety Plan - Discharge Discharge Criteria: Tolerates medication w/o severe side effects, Free of Suicidal thoughts, Free of Homicidal thoughts, Free of agitation, Normal sleep pattern, Ability to care for self, Reduction of target symptoms Discharge to:: Home, With Family - Additional Comments 08/19/17 14:01 Pt seen and discussed in team meeting. Reason for hospitalization reviewed and discussed. Pt reported feeling depressed, anxious and "not good." Pt reported poor sleep. Pt also reported visual hallucinations of "bad spirits." Pt reported she believes in God and when she sees the "bad spirits" she devotes herself to God and prays to God. Pt identified as a practicing Hindu. Pt also reported feeling paranoid at times, believing that people are laughing at her. Pt denied active SI and HI; however, reported having visions of a knife and is afraid to "kill my son and myself." When asked if she has had thoughts of hurting her son and/or herself, pt stated "No, I'm a coward." Pt reported feeling distressed because of "the bad thoughts." Pt became very tearful. Pt's medical and social issues reviewed. Pt's medications reviewed. Tx plan reviewed and discussed. Pt signed written consent for jingle writer to contact her sister, Ashley and her , Marvin. Pt also provided jingle writer with verbal authorization to contact Dr. Chivo Lin MD. SW to continue to follow case. - Treatment Team Participation Patient/Family/SO Statement: Major Depressive Disorder w/ Psychotic Features; r/o Neurocognitive impairment -Individual and group therapy -Medicine consult -Continue Zoloft -Increase Seroquel -Disposition planning -Dietary consult Discussed with Family/SO: Yes (To be reviewed with family during family meeting scheduled for 08/19/17 2pm) Was Patient/Family/SO present at Treatment Team Meeting: Yes Treatment Plan Review Patient participation: Yes Family/SO/Caregiver participation: No Additional Comments: Pt seen and discussed in team meeting. Pt reported feeling "good." Pt reported having a good night sleep. Pt reported feeling forgetful, stating 'I'm forgetting to dial the numbers again." Pt reported she cannot recall her house number and her sister, Ashley's contact information. Physical Medicine Teacher inquired pt about the incident in the shower with the PNEUMATIC JACK OPERATOR. Pt initially agreed to shower and once the water was turned on, pt refused. Pt reported that the water "is hot." When asked to further explain herself, pt stated "big burn as if there's a fire." Pt is unclear if pt is paranoid or experiencing cognitive deficits. Pt then went on to talk about how she is afraid of the police because "problem with my son." Pt re-assured that she is not in trouble and that the police is not looking for her. Pt reported that she continues to have visions of a knife. Pt also reported that the food on the unit is "drying her out." Pt was circumstantial and loose of associations. Pt appears anxious. Tx plan reviewed with pt and agreeable. Refer to MD notes for medication changes and management. SW to continue to follow case. - Problem Hopelessness/Helplessness Date Initiated: 08/17/17 Time Initiated: 19:47 Progress toward outcomes: unchanged - Discharge / Continuing Care Discharge to:: Home, With Family Behavioral Health Services: Outpatient therapy, Home health care, Adult day care Health Needs: Follow up care/test, Doctor appointments, Nutritional, Medications /Rx, Recreational/Social
[2017-08-26] MEDS: QUEtiapine 300 MG TABLET PO SCH (21:17)
--- NOTE | 2017-08-27 10:02 | PCM.PYCHPN ---
Psychiatric Progress Note - Psychiatric Progress Note Patient seen today, length of contact: Patient evaluated, case discussed with team, chart reviewed Patient Chief Complaint: "I'm anxious." Problems Identified/Issues Discussed: Patient continues to be anxious, w/ tangential non-linear speech and paranoia. She continues to be somatically preoccupied and feels like her face and body are burning from having taken a shower this morning. No visible signs of injury or actual alva. Medication Change: Yes (Increase Seroquel) Medical Record Reviewed: Yes Consults ordered or reviewed: Medicine consult, Psychology consult Mental Status Examination - Cognitive Function Orientation: Person, Place Memory: Impaired Association: Loose Fund of Knowledge: WNL Decription of patient's judgement and insights: Poor I/J - Mood Mood: Depressed, Anxious - Affect Affect: Constricted, Depressed - Formal Thought Process Formal Thought Process: Hallucinations, Paranoia, Loosening of associations Psychotic Thoughts and Behaviors: +Paranoia, +Somatic preoccupation - Suicidal Ideation Suicidal Ideation: No - Homicidal Ideation Homicidal Ideation: No Goal/Treatment Plan - Goal/Treatment Plan Need for Continued Stay: Remain at risks for inpatient hospitalization, Severe depression anxiety, Discharge may exacerbated symptoms Progress Toward Problem(s) and Goals/Treatment Plan: Major Depressive Disorder w/ Psychotic Features; r/o Neurocognitive impairment -Individual and group therapy -Medicine consult -Continue Zoloft -Increase Seroquel -Disposition planning -Dietary consult Estimated Date of D/C: 08/31/17
--- NOTE | 2017-08-27 11:41 | CP.PCM.PN ---
Subjective - Date & Time of Evaluation Date of Evaluation: 08/27/17 Time of Evaluation: 08:00 - Subjective Subjective: Patient seen and examined bedside with Dr Samaniego. patient pacing in the room. Reports feeling well. Patient denies suicidal ideations. denies fever, chest pain. SOB, n,v,d,abd pain. no overnight events. Objective - Vital Signs/Intake and Output Vital Signs (last 24 hours): Temp Pulse Resp BP Pulse Ox 97 F L 84 18 129/85 08/27/17 06:00 08/27/17 06:00 08/27/17 06:00 08/27/17 06:00 - Medications Medications: Current Medications Acetaminophen (Tylenol 325mg Tab) 650 mg PO Q4 PRN PRN Reason: Pain, moderate (4-7) Al Hydrox/Mg Hydrox/Simethicone (Maalox Plus 30 Ml) 30 ml PO Q4 PRN PRN Reason: Dyspepsia Bismuth Subsalicylate (Pepto-Bismol) 524 mg PO Q4 PRN PRN Reason: Diarrhea Lorazepam (Ativan) 0.5 mg PO HS PRN PRN Reason: Insomnia Stop: 08/31/17 19:36 Last Admin: 08/22/17 22:20 Dose: 0.5 mg Lorazepam (Ativan) 0.5 mg PO Q6 PRN PRN Reason: Anixety/Agitation Stop: 08/31/17 19:36 Last Admin: 08/25/17 12:10 Dose: 0.5 mg Magnesium Hydroxide (Milk Of Magnesia) 30 ml PO HS PRN PRN Reason: Constipation Memantine (Namenda) 5 mg PO DAILY [facility] Last Admin: 08/27/17 08:29 Dose: 5 mg Quetiapine Fumarate (Seroquel) 400 mg PO HS [facility] Sertraline HCl (Zoloft) 100 mg PO DAILY [facility] - Labs Labs: 08/20/17 06:30 08/20/17 06:30 - Constitutional Appears: No Acute Distress - Head Exam Head Exam: ATRAUMATIC, NORMOCEPHALIC - Eye Exam Eye Exam: Normal appearance - ENT Exam ENT Exam: Mucous Membranes Moist - Neck Exam Neck Exam: Full ROM - Respiratory Exam Respiratory Exam: Clear to Ausculation Bilateral. absent: Rales, Rhonchi, Wheezes - Cardiovascular Exam Cardiovascular Exam: REGULAR RHYTHM, +S1, +S2 - GI/Abdominal Exam GI & Abdominal Exam: Soft, Normal Bowel Sounds. absent: Tenderness - Extremities Exam Extremities Exam: Full ROM, Normal Inspection - Neurological Exam Neurological Exam: Alert, Awake, Oriented x3 - Psychiatric Exam Psychiatric exam: Normal Affect, Normal Mood - Skin Skin Exam: Intact Assessment and Plan - Assessment and Plan (Free Text) Plan: Assessment and Plan (1) Suicidal ideation Status: Acute (2) Major depressive disorder Status: Acute - Assessment and Plan (Free Text) Plan: c/w present management as per psychiatry c/w psychotherapy monitor for acute changes
--- NOTE | 2017-08-28 11:33 | CP.PCM.CON ---
History of Present Illness - History of Present Illness History of Present Illness: PT is a 62 year old female admitted to the geropsych unit and referred for to the movie writer for evaluation. PT admininstered the DRS, pt scored an overall score of 100. She scored in the Deficient Range on all tasks. Her Attention, Construction, MEmory, Initiation and Conceptualization skills all fell in the DEficient Range. Attention 3-5 percentile Initiation 6-10th percentile Construction 5 11-18th percentile Conceptualization 1> percentile Memory 1> percentile Significant cognitive deficits evident Past Patient History - Past Medical History & Family History Past Medical History?: No - Past Social History Smoking Status: Never Smoked - CARDIAC Hx Cardiac Disorders: No - PULMONARY Hx Respiratory Disorders: No - NEUROLOGICAL Hx Neurological Disorder: No - HEENT Hx HEENT Problems: No - RENAL Hx Chronic Kidney Disease: No - ENDOCRINE/METABOLIC Hx Endocrine Disorders: No - HEMATOLOGICAL/ONCOLOGICAL Hx Blood Disorders: No - INTEGUMENTARY Hx Dermatological Problems: No - MUSCULOSKELETAL/RHEUMATOLOGICAL Hx Musculoskeletal Disorders: No Hx Falls: No - GASTROINTESTINAL Hx Gastrointestinal Disorders: No - GENITOURINARY/GYNECOLOGICAL Hx Genitourinary Disorders: No - PSYCHIATRIC Hx Psychophysiologic Disorder: Yes Hx Anxiety: Yes Hx Depression: Yes Hx Schizophrenia: Yes Hx Substance Use: No - SURGICAL HISTORY Hx Surgeries: Yes Hx Mastectomy: Yes (left side) - ANESTHESIA Hx Anesthesia: Yes Hx Anesthesia Reactions: No Meds Allergies/Adverse Reactions: Allergies Allergy/AdvReac Type Severity Reaction Status Date / Time No Known Allergies Allergy Verified 12/19/13 11:43 - Medications Medications: Current Medications Acetaminophen (Tylenol 325mg Tab) 650 mg PO Q4 PRN PRN Reason: Pain, moderate (4-7) Al Hydrox/Mg Hydrox/Simethicone (Maalox Plus 30 Ml) 30 ml PO Q4 PRN PRN Reason: Dyspepsia Bismuth Subsalicylate (Pepto-Bismol) 524 mg PO Q4 PRN PRN Reason: Diarrhea Lorazepam (Ativan) 0.5 mg PO HS PRN PRN Reason: Insomnia Stop: 08/31/17 19:36 Last Admin: 08/22/17 22:20 Dose: 0.5 mg Lorazepam (Ativan) 0.5 mg PO Q6 PRN PRN Reason: Anixety/Agitation Stop: 08/31/17 19:36 Last Admin: 08/25/17 12:10 Dose: 0.5 mg Magnesium Hydroxide (Milk Of Magnesia) 30 ml PO HS PRN PRN Reason: Constipation Memantine (Namenda) 5 mg PO DAILY [facility] Last Admin: 08/28/17 08:46 Dose: 5 mg Quetiapine Fumarate (Seroquel) 400 mg PO HS [facility] Last Admin: 08/27/17 21:26 Dose: 400 mg Sertraline HCl (Zoloft) 100 mg PO DAILY [facility] Last Admin: 08/28/17 08:47 Dose: 100 mg Results - Vital Signs Recent Vital Signs: Last Vital Signs Temp 97.3 F L 08/28/17 06:00 Pulse 99 H 08/28/17 06:00 Resp 20 08/28/17 06:00 BP 114/58 L 08/28/17 06:00 Pulse Ox - Labs Result Diagrams: 08/20/17 06:30 08/20/17 06:30
--- NOTE | 2017-08-28 14:32 | PCM.PYCHPN ---
Psychiatric Progress Note - Psychiatric Progress Note Patient seen today, length of contact: Patient evaluated, case discussed with team, chart reviewed Patient Chief Complaint: "I'm anxious." Problems Identified/Issues Discussed: Patient is more organized, less depressed and anxious. She is less paranoid. She engages more appropriately with staff and peers. No adverse effects to medications reported. Medication Change: No Medical Record Reviewed: Yes Consults ordered or reviewed: Medicine consult Psychology consult: PT is a 62 year old female admitted to the geropsych unit and referred for to the loan underwriter for evaluation. PT admininstered the DRS, pt scored an overall score of 100. She scored in the Deficient Range on all tasks. Her Attention, Construction, MEmory, Initiation and Conceptualization skills all fell in the DEficient Range. Attention 3-5 percentile Initiation 6-10th percentile Construction 5 11-18th percentile Conceptualization 1> percentile Memory 1> percentile Significant cognitive deficits evident Mental Status Examination - Cognitive Function Orientation: Person, Place, Situation Memory: Impaired Association: Loose Fund of Knowledge: WNL Decription of patient's judgement and insights: Poor I/J - Mood Mood: Anxious - Affect Affect: Constricted - Formal Thought Process Formal Thought Process: Loosening of associations Psychotic Thoughts and Behaviors: Denies acute paranoia/AH/VH - Suicidal Ideation Suicidal Ideation: No - Homicidal Ideation Homicidal Ideation: No Goal/Treatment Plan - Goal/Treatment Plan Need for Continued Stay: Severe depression anxiety, Discharge may exacerbated symptoms Progress Toward Problem(s) and Goals/Treatment Plan: Major Depressive Disorder w/ Psychotic Features; Dementia -Individual and group therapy -Medicine consult -Continue Bubba Lewis Namenda -Psychology consult -Disposition planning -Dietary consult Estimated Date of D/C: 09/01/17
--- NOTE | 2017-08-29 10:20 | PCM.PYCHPN ---
Psychiatric Progress Note - Psychiatric Progress Note Patient seen today, length of contact: Patient evaluated, case discussed with team, chart reviewed Patient Chief Complaint: "I'm anxious." Problems Identified/Issues Discussed: Patient is very anxious this morning and difficult to redirect due to acute anxiety; patient was given PRN Ativan. She reports feeling depressed/anxious and worried about her family. No adverse effects to medications reported. Medication Change: No Medical Record Reviewed: Yes Consults ordered or reviewed: Medicine consult Psychology consult: PT is a 62 year old female admitted to the geropsych unit and referred for to the life underwriter for evaluation. PT admininstered the DRS, pt scored an overall score of 100. She scored in the Deficient Range on all tasks. Her Attention, Construction, MEmory, Initiation and Conceptualization skills all fell in the DEficient Range. Attention 3-5 percentile Initiation 6-10th percentile Construction 5 11-18th percentile Conceptualization 1> percentile Memory 1> percentile Significant cognitive deficits evident Mental Status Examination - Cognitive Function Orientation: Person, Place, Situation Memory: Impaired Attention: Poor Concentration: Poor Association: Loose Fund of Knowledge: Poor Decription of patient's judgement and insights: Poor I/J - Mood Mood: Anxious - Affect Affect: Constricted - Formal Thought Process Formal Thought Process: Loosening of associations Psychotic Thoughts and Behaviors: Denies acute paranoia/AH/VH - Suicidal Ideation Suicidal Ideation: No - Homicidal Ideation Homicidal Ideation: No Goal/Treatment Plan - Goal/Treatment Plan Need for Continued Stay: Severe depression anxiety, Discharge may exacerbated symptoms Progress Toward Problem(s) and Goals/Treatment Plan: Major Depressive Disorder w/ Psychotic Features; Dementia -Individual and group therapy -Medicine consult -Continue JudyofBubba campos Namenda -Psychology consult -Disposition planning -Dietary consult Estimated Date of D/C: 09/01/17
--- NOTE | 2017-08-30 10:46 | PN ---
DATE: 08/30/2017 SUBJECTIVE: The patient is seen and examined. Interim events noted. Psychiatric followup and intervention noted and appreciated. The patient remains in [facility]. Denies any specific medical complaints. Nursing staff reported the patient to the medications. No chest pain. No shortness of breath. PHYSICAL EXAMINATION: GENERAL: The patient is in no acute distress. VITAL SIGNS: Stable. HEART: S1 and S2, normal and regular. LUNGS: Good bilateral air exchange. ABDOMEN: Soft and nontender. EXTREMITIES: No edema. No calf swelling. No tenderness. No acute ischemia. CENTRAL NERVOUS SYSTEM: Exam is essentially unchanged. DIAGNOSTIC DATA: Available diagnostic data reviewed. PLAN: Overall, the patient's general medical condition is stable. Plan as ordered. Walter Connelly MD
--- NOTE | 2017-08-30 11:41 | PCM.PYCHPN ---
Psychiatric Progress Note - Psychiatric Progress Note Patient seen today, length of contact: Patient evaluated, case discussed with team, chart reviewed Patient Chief Complaint: "I'm okay." Problems Identified/Issues Discussed: Patient is less anxious and depressed. She is more goal oriented and redirectable. No adverse effects to medications reported. Medication Change: No Medical Record Reviewed: Yes Consults ordered or reviewed: Medicine consult Psychology consult: PT is a 62 year old female admitted to the geropsych unit and referred for to the senior technical writer for evaluation. PT admininstered the DRS, pt scored an overall score of 100. She scored in the Deficient Range on all tasks. Her Attention, Construction, MEmory, Initiation and Conceptualization skills all fell in the DEficient Range. Attention 3-5 percentile Initiation 6-10th percentile Construction 5 11-18th percentile Conceptualization 1> percentile Memory 1> percentile Significant cognitive deficits evident Mental Status Examination - Cognitive Function Orientation: Person, Place, Situation Memory: Impaired Attention: Poor Concentration: Poor Association: Loose Fund of Knowledge: Poor Decription of patient's judgement and insights: Poor I/J - Mood Mood: Neutral - Affect Affect: Broad - Formal Thought Process Formal Thought Process: Loosening of associations Psychotic Thoughts and Behaviors: Denies acute paranoia/AH/VH - Suicidal Ideation Suicidal Ideation: No - Homicidal Ideation Homicidal Ideation: No Goal/Treatment Plan - Goal/Treatment Plan Need for Continued Stay: Severe depression anxiety, Discharge may exacerbated symptoms Progress Toward Problem(s) and Goals/Treatment Plan: Major Depressive Disorder w/ Psychotic Features; Dementia -Individual and group therapy -Medicine consult -Continue Bubba Lewis Namenda -Psychology consult -Disposition planning -Dietary consult Estimated Date of D/C: 09/01/17
--- NOTE | 2017-08-31 09:25 | PN ---
DATE: 08/29/2017 SUBJECTIVE: The patient is seen and examined. Interim events noted. Psychiatry followup and intervention noted and appreciated. The patient remains in Geropsychiatric Unit. The patient is sleepy and arousable. Denies any specific medical complaint other than occasional pain. PHYSICAL EXAMINATION: GENERAL: The patient is in no acute distress. VITAL SIGNS: Stable. HEART: S1 and S2 normal and regular. LUNGS: Good bilateral air exchange. ABDOMEN: Soft and nontender. EXTREMITIES: No edema. No calf swelling. No tenderness. No acute ischemia. CENTRAL NERVOUS SYSTEM: Exam is essentially unchanged. DIAGNOSTIC DATA: Available diagnostic data reviewed. ASSESSMENT AND PLAN: Overall, the patient's general medical condition is stable. Plan as ordered. Walter Connelly MD
--- NOTE | 2017-08-31 10:21 | PCM.PYCHPN ---
Psychiatric Progress Note - Psychiatric Progress Note Patient seen today, length of contact: Patient evaluated, case discussed with team, chart reviewed Patient Chief Complaint: "I'm okay." Problems Identified/Issues Discussed: Patient continues to improve clinically. She is less anxious. She is more goal oriented, linear and redirectable. She continues to have chronic cognitive deficits due to dementia. No adverse effects to medications reported. Medication Change: No Medical Record Reviewed: Yes Consults ordered or reviewed: Medicine consult Psychology consult: PT is a 62 year old female admitted to the geropsych unit and referred for to the advertising writer for evaluation. PT admininstered the DRS, pt scored an overall score of 100. She scored in the Deficient Range on all tasks. Her Attention, Construction, MEmory, Initiation and Conceptualization skills all fell in the DEficient Range. Attention 3-5 percentile Initiation 6-10th percentile Construction 5 11-18th percentile Conceptualization 1> percentile Memory 1> percentile Significant cognitive deficits evident Mental Status Examination - Cognitive Function Orientation: Person, Place, Situation Memory: Impaired Attention: Poor Concentration: Poor Association: Loose Fund of Knowledge: Poor Decription of patient's judgement and insights: Poor I/J due to chronic cognitive deficits; patient to be under that care of her family upon discharge - Mood Mood: Neutral - Affect Affect: Broad - Speech Speech: Soft - Formal Thought Process Formal Thought Process: Loosening of associations Psychotic Thoughts and Behaviors: Denies acute paranoia/AH/VH - Suicidal Ideation Suicidal Ideation: No - Homicidal Ideation Homicidal Ideation: No Goal/Treatment Plan - Goal/Treatment Plan Need for Continued Stay: Severe depression anxiety, Discharge may exacerbated symptoms Progress Toward Problem(s) and Goals/Treatment Plan: Major Depressive Disorder w/ Psychotic Features; Dementia -Individual and group therapy -Medicine consult -Continue Bubba Lweis Namenda -Psychology consult -Disposition planning -Dietary consult -Psychoeducation provided to family re: patient's cognitive deficits Estimated Date of D/C: 09/01/17
[2017-09-01 06:01] VITALS: BP 135/92; PULSE 89; RESP 20; TEMP 97
--- NOTE | 2017-09-01 08:54 | PCM.PYCHDC ---
Mental Status Examination - Mental Status Examination Orientation: Person, Place, Situation Memory: Impaired Mood: Neutral Affect: Broad Speech: Appropriate Attention: Poor (Chronic cognitive deficits due to dementia) Concentration: Poor Association: Loose Fund of Knowledge: Poor Formal Thought Process: Loosening of associations Description of patient's judgement and insight: Poor I/J due to chronic cognitive deficits; patient to be under that care of her family upon discharge Psychotic Thoughts and Behaviors: Denies acute paranoia/AH/VH Suicidal Ideation: No Current Homicidal Ideation?: No Discharge Summary - Discharge Note Reason for Hospitalization: HPI: 62 yo female w/ h/o depression, non-complaint with treatment, presents with worsening depression and suicidal ideation to cut her wrists. She is able to contract for safety at this time. She feels very anxious and is worried that she will hurt herself or someone else. +Poor sleep/poor appetite/ low energy/ lack of interest. Denies AH/VH/paranoia PPHx: H/o depression and tx w/ Dr. Lin; was on Zoloft, Risperdal and Cogentin in the past; currently not compliant with treatment PMHx: Breast CA s/p mastectomy, currently receiving chemotherapy SHx: From [place]; lives w/ sister; denies drugs/etoh ALL: NKDA Consultations:: List each consultation separately and include: 1. Reason for request. 2. Findings. 3. Follow-up Consultations: Medicine consult Psychology consult: PT is a 62 year old female admitted to the geropsych unit and referred for to the administrative underwriter for evaluation. PT admininstered the DRS, pt scored an overall score of 100. She scored in the Deficient Range on all tasks. Her Attention, Construction, MEmory, Initiation and Conceptualization skills all fell in the DEficient Range. Attention 3-5 percentile Initiation 6-10th percentile Construction 5 11-18th percentile Conceptualization 1> percentile Memory 1> percentile Significant cognitive deficits evident Summary of Hospital Course include:: 1. Description of specific treatment plan utilized for patients during their course of treatmen. 2. Summarize the time- course for resolution of acute symptoms and/or regressed behaviors. 3. Describe issues identified and worked on during hospitalization. 4. Describe medication utilized. 5. Describe medical problems identified and treated. 6. Reassessment of suicide risk Summary of Hospital Course: Patient was admitted to the psychiatry unit. Individual and group therapy were provided. Patient was stabilized on Seroquel, Zoloft and Namenda. Psychoeducation provided to the family that the patient has chronic neurocognitive deficits and needs supervision and care upon discharge. Patient is currently at her baseline of functioning and psychiatrically stable for discharge. - Diagnosis (1) Major depressive disorder Current Visit: Yes Status: Chronic - Final Diagnosis (DSM 5) Condition upon Discharge: STABLE DSM 5: Major Depressive Disorder w/ Psychotic Features; Dementia Disposition: HOME/ ROUTINE Follow-up Treatment Plan: Major Depressive Disorder w/ Psychotic Features; Dementia -Individual and group therapy -Medicine consult -Continue Zoloft, Seroquel, Namenda -Psychology consult -Dietary consult -Psychoeducation provided to family re: patient's cognitive deficits Prescriptions/Medication Reconciliation: Memantine [Namenda] 5 mg PO DAILY #30 tab Quetiapine Fumarate [Seroquel] 400 mg PO HS #30 tab Sertraline [Zoloft] 100 mg PO DAILY #30 tab - Smoking Cessation Smoking Cessation Medication prescribed: No Reason for not providing: Not indicated - Antipsychotic Medications Pt discharged on 2 or more routine antipsychotic medications: No
== END 2017-09-01 13:30 | disposition home or self-care (01) | DRG 430 ==
LOC: H.STEP 19:10
PROVIDERS: ADMIT Psychiatry & Neurology Psychiatry; ATTEND Psychiatry & Neurology Psychiatry
PROC: GZ72ZZZ Family Psychotherapy (ICD-10-PCS; principal; 2017-08-17)
PROC: GZHZZZZ Group Psychotherapy (ICD-10-PCS; 2017-08-17)
DX: F32.3 Major depressive disorder, single episode, severe with psychotic features (principal); Z91.19 Patient's noncompliance with other medical treatment and regimen; G47.00 Insomnia, unspecified; R45.851 Suicidal ideations; C50.912 Malignant neoplasm of unspecified site of left female breast; F41.9 Anxiety disorder, unspecified; R41.89 Other symptoms and signs involving cognitive functions and awareness

== ENCOUNTER 2017-09-03 21:26 | Inpatient (IN) | payer MEDICAID ==
[2017-09-03 22:34] LABS: BASO # 0.1 K/uL (0.0-0.2); BASO % 0.8 % (0.0-2.0); EOS # 0.1 K/uL (0.0-0.7); EOS % 0.8 % (0.0-4.0); HEMOGLOBIN 11.7 g/dL (12.0-16.0); LYMPH % 17.7 % (20.0-40.0); MEAN CELL VOLUME 86.7 fl (81.0-99.0); MEAN CORPUSCULAR HGB CONC 33.5 g/dL (33.0-37.0); MEAN PLATELET VOLUME 9.1 fl (7.2-11.7); MONO # 0.9 K/uL (0.0-0.8); MONO % 7.4 % (0.0-10.0); NEUT # 8.5 K/uL (1.8-7.0); NEUT % 73.3 % (50.0-75.0); RBC 4.03 Mil/uL (3.80-5.20); RED CELL DISTRIBUTION WIDTH 14.3 % (11.5-14.5); WHITE BLOOD COUNT 11.6 K/uL (4.8-10.8)
[2017-09-03 22:45] LABS: ALB/GLOB RATIO 1.4 (1.0-2.1); ALBUMIN 4.3 g/dL (3.5-5.0); ALT/SGPT 49 U/L (9-52); AST/SGOT 33 U/L (14-36); BLOOD UREA NITROGEN 23 mg/dl (7-17); CALCIUM 9.7 mg/dL (8.4-10.2); GFR AFRICAN-AMERICAN > 60; GFR NON-AFRICAN AMERICAN > 60
--- NOTE | 2017-09-03 23:35 | ED PDOC ---
HPI: Psych/Substance Abuse Time Seen by Provider: 09/03/17 21:42 Chief Complaint (Nursing): Psychiatric Evaluation Chief Complaint (Provider): Psychiatric Evaluation ED Caveat: Uncooperative History Per: EMS, Family History/Exam Limitations: no limitations Onset/Duration Of Symptoms: Hrs (x3) Current Symptoms Are (Timing): Still Present Suicide/Self Injury Attempted (Context): None Additional Complaint(s): 62 year old female brought in by EMS presents to ED for a psychiatric evaluation due to aggressive behavior and has a past medical history of ADHD, dementia, and depression (compliant with medication). notes that patient was recently hospitalized on the psychiatric floor and was subsequently discharged 2 days ago. 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 Upon ED arrival, patient is hyperventilating and is uncooperative, unwilling to answer questions. PCP: Unknown Past Medical History Reviewed: Historical Data, Nursing Documentation, Vital Signs Vital Signs: Last Vital Signs Temp 98.4 F 09/03/17 21:31 Pulse 109 H 09/03/17 21:31 Resp 18 09/03/17 21:31 BP 137/83 09/03/17 21:31 Pulse Ox 100 09/03/17 21:31 - Medical History PMH: Anxiety, Dementia, Depression, Schizophrenia Denies: Chronic Kidney Disease Other PMH: ADHD - Family History Family History: States: Unknown Family Hx - Living Arrangements Living Arrangements: With Family - Immunization History Hx Tetanus Toxoid Vaccination: No Hx Influenza Vaccination: No Hx Pneumococcal Vaccination: No - Home Medications Home Medications: Ambulatory Orders Medication Instructions Recorded Memantine [Namenda] 5 mg PO DAILY #30 tab 08/31/17 Quetiapine Fumarate [Seroquel] 400 mg PO HS #30 tab 08/31/17 Sertraline [Zoloft] 100 mg PO DAILY #30 tab 08/31/17 - Allergies Allergies/Adverse Reactions: Allergies Allergy/AdvReac Type Severity Reaction Status Date / Time No Known Allergies Allergy Verified 09/03/17 21:28 Review of Systems Review Of Systems: ROS cannot be obtained secondary to pt's inabilty to answer questions. (Patient is uncooperative) Physical Exam - Reviewed Nursing Documentation Reviewed: Yes Vital Signs Reviewed: Yes - Physical Exam Appears: Positive for: Non-toxic, No Acute Distress (patient is calm, but refuses to answer questions) Head Exam: Positive for: ATRAUMATIC, NORMOCEPHALIC Skin: Positive for: Warm, Dry Eye Exam: Positive for: EOMI, PERRL ENT: Positive for: Pharynx Is (clear) Neck: Positive for: Painless ROM, Supple Cardiovascular/Chest: Positive for: Regular Rate, Rhythm. Negative for: Murmur Respiratory: Positive for: Normal Breath Sounds. Negative for: Respiratory Distress Gastrointestinal/Abdominal: Positive for: Soft. Negative for: Tenderness Back: Positive for: Normal Inspection. Negative for: Decreased ROM Extremity: Positive for: Normal ROM. Negative for: Deformity Lymphatic: Negative for: Adenopathy Neurologic/Psych: Positive for: Alert, Other (unable to assess orientation or mood du to lack of cooperation). Negative for: Motor/Sensory Deficits - Laboratory Results Result Diagrams: 09/04/17 10:24 09/04/17 10:24 - ECG O2 Sat by Pulse Oximetry: 100 (RA) Pulse Ox Interpretation: Normal Medical Decision Making Medical Decision Makin Initial impression: dementia, decompensated, psychosis DDx: severe depression Initial plan: * Labs * Crisis eval * UDip * Ativan 1mg IVP * Haldol 5mg IM * 1:1 OBS Scribe Attestation: Documented by Donna Flowers acting as a scribe for Rena Rios MD. Scribe Attestation: All medical record entries made by the Scribe were at my direction and personally dictated by me. I have reviewed the chart and agree that the record accurately reflects my personal performance of the history, physical exam, medical decision making, and the department course for this patient. I have also personally directed, reviewed, and agree with the discharge instructions and disposition. Disposition - Clinical Impression Clinical Impression: Altered mental status - Disposition Disposition: Transfer of Care Disposition Time: 00:00 Condition: STABLE Patient Signed Over To: Ventura Hall Handoff Comments: pending crisis eval
--- NOTE | 2017-09-04 00:09 | ED PDOC ---
- Laboratory Results Result Diagrams: 09/04/17 10:24 09/04/17 10:24 - ECG O2 Sat by Pulse Oximetry: 100 (RA) Medical Decision Making Medical Decision Makin Patient signed out to this provider from Dr. Rios pending crisis evaluation and re-evaluation. 0130 Patient resting comfortably. Vitals stable. 0300 Patient resting comfortably. Vitals stable. 0430 Patient resting comfortably. Vitals stable. 0620 Patient has been evaluated by crisis and will be admitted as per Dr. Barnes Dx: depression with psychosis Patient is medically stable for psychiatric admission. Scribe Attestation: Documented by Donna Flowers acting as a scribe for Ventura Hall MD. Scribe Attestation: All medical record entries made by the Scribe were at my direction and personally dictated by me. I have reviewed the chart and agree that the record accurately reflects my personal performance of the history, physical exam, medical decision making, and the department course for this patient. I have also personally directed, reviewed, and agree with the discharge instructions and disposition. Disposition - Clinical Impression Clinical Impression: Depression, psychotic - POA Present On Arrival: None - Disposition Disposition: Admitted as In-Patient (INPATIENT ADULT PSYCHIATRY) Disposition Time: 06:23 Condition: STABLE
[2017-09-04] MEDS ORDERED: Alum-Mag Hydrox-Simethicone Susp (30 mL) PO PRN (08:15)
[2017-09-04] MEDS ORDERED: Bismuth Subsalicylate 262 mg/15 ml Sus (240 ml) PO PRN (08:15)
[2017-09-04] MEDS ORDERED: Magnesium Hydroxide Susp 30 ml UD PO PRN (08:15)
--- NOTE | 2017-09-04 08:21 | RAD ---
PROCEDURE: CHEST RADIOGRAPH, 1 VIEW HISTORY: admit COMPARISON: Chest radiographs 08/17/2017. FINDINGS: Right MediPort unchanged in position. LUNGS: Clear. PLEURA: No pneumothorax or pleural fluid seen. CARDIOVASCULAR: Normal. OSSEOUS STRUCTURES: No significant abnormalities. VISUALIZED UPPER ABDOMEN: Normal. OTHER FINDINGS: Prior left mastectomy again evident. IMPRESSION: No interval acute cardiopulmonary disease appreciated. MediPort unchanged in position and prior left mastectomy again evident.
--- NOTE | 2017-09-04 09:59 | PCM.PSYCH ---
Initial Psychiatric Evaluation - Initial Psychiatric Evaluation Type of Admission: Voluntary Legal Status: Capacity Chief Complaint (in patient's own words): "My is trying to hurt me." Patient's Reaction to Hospitalization: HPI: 62 yo female w/ h/o depression, recently discharged from [facility], presents w/ worsening paranoia, agitation and depression. She feels very anxious and is worried that her is trying to harm her or her son and that her sister and her and colluding against her. PPHx: H/o depression and tx w/ Dr. Lin; recently discharged from [facility] on Zoloft, Seroquel and Namenda. PMHx: Breast CA s/p mastectomy, currently receiving chemotherapy SHx: From [place]; lives w/ sister; denies drugs/etoh ALL: NKDA Current Medications: Active Medications Generic Name Dose Route Start Last Admin Trade Name Freq PRN Reason Stop Dose Admin Acetaminophen 650 mg 09/04/17 08:15 Tylenol 325mg Tab PO Q4 PRN Pain, moderate (4-7) Al Hydrox/Mg Hydrox/Simethicone 30 ml 09/04/17 08:15 Maalox Plus 30 Ml PO Q4 PRN Dyspepsia Bismuth Subsalicylate 524 mg 09/04/17 08:15 Pepto-Bismol PO Q4 PRN Diarrhea Lorazepam 0.5 mg 09/04/17 08:15 Ativan PO 09/18/17 08:16 Q6 PRN Anixety/Agitation Lorazepam 0.5 mg 09/04/17 08:15 Ativan PO 09/18/17 08:16 HS PRN Insomnia Magnesium Hydroxide 30 ml 09/04/17 08:15 Milk Of Magnesia PO HS PRN Constipation Memantine 5 mg 09/04/17 09:00 Namenda PO BID GREGG Quetiapine Fumarate 50 mg 09/04/17 09:00 Seroquel PO DAILY GREGG Quetiapine Fumarate 400 mg 09/04/17 22:00 Seroquel PO HS GREGG Sertraline HCl 100 mg 09/04/17 09:00 Zoloft PO DAILY GREGG Past Psychiatric History - Past Psychiatric History Previous Treatment History: Inpatient Pertinent Medical Hx (Current Medical&Sleep Prob, Allergies): Allergies Allergy/AdvReac Type Severity Reaction Status Date / Time No Known Allergies Allergy Verified 09/03/17 21:28 Memantine [Namenda] 5 mg PO DAILY #30 tab 08/31/17 Quetiapine Fumarate [Seroquel] 400 mg PO HS #30 tab 08/31/17 Sertraline [Zoloft] 100 mg PO DAILY #30 tab 08/31/17 Review of Systems - Psychiatric Psychiatric: As Per HPI, Abnormal Sleep Pattern, Anxiety, Behavioral Changes, Change in Appetite, Depression, Difficulty Concentrating, Irritability, Memory Loss, Mood Swings, Paranoia Mental Status Examination - Personal Presentation Personal Presentation: Looks stated age - Affect Affect: Constricted - Motor Activity Motor Activity: Psychomotor Agitation - Reliability in Providing Information Reliability in Providing Information: Poor, due to altered mood, Poor, due to cognitve impairment - Speech Speech: Tangential - Mood Mood: Anxious - Formal Thought Process Formal Thought Process: Delusions, Paranoia, Loosening of associations - Obsessions/Compulsions Obsessions: No Compulsions: No - Cognitive Functions Orientation: Person, Place, Situation, Time Sensorium: Alert Judgement: Imparied, as evidence by: Poor judgement, Imparied, as evidence by: Lack of insight into illness Memory: Recent intact, as evidence by: Ability to recall events of the day - Risk Risk: Diminished functioning - Strength & Assets Inventory Strength & Assets Inventory: Family support, Cooperative - Limitations Limitations: Decreased memory, recent DSM 5 DX - DSM 5 DSM 5 Diagnosis: Major Depressive Disorder w/ Psychotic Features; Dementia w/ behavioral disturbances - Recommended/Plan of Treatment Treatment Recommendations and Plan of Treatment: Major Depressive Disorder w/ Psychotic Features; Dementia w/ behavioral disturbances -Admit to geriatric psychiatry unit -Individual and group therapy -Psychoeducation -Increase Seroquel to 50 mg PO AM/ 400 mg PO HS -Continue Zoloft 100 mg PO Daily -Increase Namenda to 5 mg PO BID -Obtain collateral history -Disposition planning Projected ELOS: 5-10 days Discharge Plan and Discharge Criteria: Discharge when patient is psychiatrically stable - Smoking Cessation Smoking Cessation Initiated: No Reason for not providing: Not indicated
[2017-09-04 10:48] LABS: BASO % 0.3 % (0.0-2.0); EOS % 0.2 % (0.0-4.0); HEMOGLOBIN 11.6 g/dL (12.0-16.0); LYMPH # 1.3 K/uL (1.0-4.3); LYMPH % 9.3 % (20.0-40.0); MEAN CELL VOLUME 86.9 fl (81.0-99.0); MEAN CORPUSCULAR HEMOGLOBIN 29.1 pg (27.0-31.0); MEAN CORPUSCULAR HGB CONC 33.5 g/dL (33.0-37.0); MEAN PLATELET VOLUME 8.4 fl (7.2-11.7); MONO # 0.9 K/uL (0.0-0.8); MONO % 6.1 % (0.0-10.0); NEUT # 11.7 K/uL (1.8-7.0); NEUT % 84.1 % (50.0-75.0); PLATELET COUNT 275 K/uL (130-400); RBC 3.97 Mil/uL (3.80-5.20); RED CELL DISTRIBUTION WIDTH 13.8 % (11.5-14.5); WHITE BLOOD COUNT 13.9 K/uL (4.8-10.8)
[2017-09-04 11:01] VITALS: BMI 20.5
[2017-09-04 11:14] LABS: ALB/GLOB RATIO 1.4 (1.0-2.1); ALBUMIN 4.2 g/dL (3.5-5.0); ALT/SGPT 46 U/L (9-52); AST/SGOT 38 U/L (14-36); BLOOD UREA NITROGEN 21 mg/dl (7-17); CALCIUM 9.3 mg/dL (8.4-10.2); GFR AFRICAN-AMERICAN > 60; GFR NON-AFRICAN AMERICAN > 60
[2017-09-04 12:40] LABS: LYMPHOCYTE 10 % (20-50); MONOCYTE 5 % (0-10); NEUTROPHIL 85 % (42-75); PLATELET ESTIMATE NORMAL (NORMAL); TOTAL CELLS COUNTED 100
--- NOTE | 2017-09-04 13:51 | PCM.BM ---
Addendum entered and electronically signed by La Camacho MSW 09/07/17 12:39: Family Contact Family involvement: Family/SO is involved Family contact: Patient agrees to contact, Family has been contacted by patient , Telephone contact initiated by staff, Family meeting planned to review treatment plan Family contact name: Ashley - sister Family contacted how many times per week?: 2 Family contact comment: [phone] - Outside Agency [facility]- Dr. Chivo baldwin MD Care involvment: Information-sharing Agency contact name: Dr. Riley MD Agency contact number: [phone] Active Day @ [facility] Care involvment: Other (Referred to at time of discharge on 09/01/2017; unclear if pt followed up with referral) - Goals for Treatment Patient goals for treatment: "I don't know anymore." Addendum entered and electronically signed by La Camacho MSW 09/07/17 12:34: Discharge/Continuing Care - Education Needs Education Needs: Family Medication, Family Coping Skills, Family Placement options, Family Community resources, Family Aftercare Safety Plan, Patient Medication, Patient Coping Skills, Patient Placement options, Patient Community resources, Patient Aftercare Safety Plan - Discharge Discharge Criteria: Tolerates medication w/o severe side effects, Free of paranoid thoughts, Free of agitation, Ability to care for self, Reduction of target symptoms Discharge to:: Home, With Family - Additional Comments 09/07/17 12:23 Pt seen and discussed in team meeting. Reason for hospitalization reviewed and discussed at length. Pt reported she was referred to the ED by her sister, Ashley after a verbal altercation with her and an anxiety attack. Pt reported that since last hospitalization her had to learn how to cook; however, he did not cook the chicken well and it was still raw. Pt reported that she told him she could not eat the chicken like that and reportedly, the replied with "upu have me tired of everything that is happening." Pt reported that he was angry and began to pace the house. Pt also reported that pt's also told her she had to shower and if she didn't that "I'll throw you in there." Pt reported that the water is too hot and it alva her skin. Pt reported that the then called her sister and she was brought to the ED. Pt reported that her sister "only listens to him not me. She doesn't believe me." pt reported compliance with medications stating that her was administering the medications at home. Pt denied SI and HI. Pt denied AVH. Pt appears to be paranoid towards . Pt's medical and social issues reviewed. Tx plan reviewed with pt; pt agreeable. Pt provided advertising copywriter with verbal and written consent to contact her sisterAshley ([phone]) for collateral information. SW to continue to follow case. - Treatment Team Participation Patient/Family/SO Statement: Dementia w/ behavioral disturbances; Schizoaffective Disorder -Individual and group therapy -Psychoeducation -Increase Seroquel to 100 mg PO AM/ 400 mg PO HS -Continue Zoloft 100 mg PO Daily -Continue Namenda 5 mg PO BID -Obtain collateral history -Disposition planning Discussed with Family/SO: No Was Patient/Family/SO present at Treatment Team Meeting: Yes Addendum entered and electronically signed by Lisa Sutton MD 09/07/17 09:19: - Diagnosis (1) Dementia with behavioral disturbance Status: Acute Interventions: Medication management, Individual and group therapy, Psychoeducation 09/07/17 09:19 (2) Schizoaffective disorder Status: Acute Interventions: Medication management, Individual and group therapy, Psychoeducation 09/07/17 09:19 Original Note: Treatment Plan Problems - Problems identified on initial assessmt Hopelessness/Helplessness Date Initiated: 09/04/17 Time Initiated: 13:50 Assessment reference: HP, NA Status: Active Treatment assets and liabiliti Patient Assests: cooperative, good support system, negotiates basic needs Patient Liabilities: medical problems, language/speech - Milieu Protocol Maintain good personal hygiene: daily Encourage regular showers, daily Remind patient to perform daily oral care, daily Assist patient to perform ADL's Conduct patient checks and document Observation sheet: Q15 minutes Maintain personal safety: every shift Educate patient to report safety concerns to staff, every shift Monitor environment for contraband/sharps Medication safety: Monitor for expected outcome, potential side effects: every shift, Assess barriers to learning: every shift, Assess readiness for medication education: every shift Milieu Narrative: Major Depressive Disorder w/ Psychotic Features; Dementia w/ behavioral disturbances -Admit to geriatric psychiatry unit -Individual and group therapy -Psychoeducation -Increase Seroquel to 50 mg PO AM/ 400 mg PO HS -Continue Zoloft 100 mg PO Daily -Increase Namenda to 5 mg PO BID -Obtain collateral history -Disposition planning Discharge/Continuing Care - Treatment Team Participation Patient/Family/SO Statement: Major Depressive Disorder w/ Psychotic Features; Dementia w/ behavioral disturbances -Admit to geriatric psychiatry unit -Individual and group therapy -Psychoeducation -Increase Seroquel to 50 mg PO AM/ 400 mg PO HS -Continue Zoloft 100 mg PO Daily -Increase Namenda to 5 mg PO BID -Obtain collateral history -Disposition planning
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
[2017-09-04 16:44] VITALS: O2SAT 100
[2017-09-04 17:02] LABS: SQUAMOUS EPITHIAL < 1 /hpf (0-5); URINE BILIRUBIN NEGATIVE (NEGATIVE); URINE BLOOD MODERATE (NEGATIVE); URINE CLARITY CLEAR (Clear); URINE COLOR YELLOW (YELLOW); URINE GLUCOSE (UA) NEG (Normal); URINE LEUKOCYTE ESTERASE NEG Leu/uL (Negative); URINE PROTEIN NEGATIVE (NEGATIVE)
--- NOTE | 2017-09-04 17:51 | CARD ---
APPROVED REPORT EKG Measurement Heart [id number] <Conclusion> Normal sinus rhythm Normal ECG
[2017-09-04] MEDS ORDERED: QUETIAPINE FUMARATE 400 MG PO SCH (22:00)
[2017-09-05 09:11] LABS: BASO % 0.4 % (0.0-2.0); EOS # 0.1 K/uL (0.0-0.7); EOS % 0.7 % (0.0-4.0); HEMOGLOBIN 11.3 g/dL (12.0-16.0); LYMPH # 1.4 K/uL (1.0-4.3); LYMPH % 13.9 % (20.0-40.0); MEAN CELL VOLUME 86.4 fl (81.0-99.0); MEAN CORPUSCULAR HEMOGLOBIN 29.1 pg (27.0-31.0); MEAN CORPUSCULAR HGB CONC 33.6 g/dL (33.0-37.0); MEAN PLATELET VOLUME 8.9 fl (7.2-11.7); MONO # 0.6 K/uL (0.0-0.8); MONO % 6.5 % (0.0-10.0); NEUT # 7.7 K/uL (1.8-7.0); NEUT % 78.5 % (50.0-75.0); RBC 3.88 Mil/uL (3.80-5.20); RED CELL DISTRIBUTION WIDTH 13.8 % (11.5-14.5); WHITE BLOOD COUNT 9.8 K/uL (4.8-10.8)
[2017-09-05 09:16] LABS: ALB/GLOB RATIO 1.3 (1.0-2.1); ALT/SGPT 48 U/L (9-52); AST/SGOT 30 U/L (14-36); BLOOD UREA NITROGEN 18 mg/dl (7-17); CALCIUM 9.3 mg/dL (8.4-10.2); GFR AFRICAN-AMERICAN > 60; GFR NON-AFRICAN AMERICAN > 60
--- NOTE | 2017-09-05 11:13 | PCM.PYCHPN ---
Psychiatric Progress Note - Psychiatric Progress Note Patient seen today, length of contact: pt seen and evaluated Patient Chief Complaint: pt is less anxious and less paranoid but still with poor insight and need stabilization. Mental Status Examination - Cognitive Function Orientation: Person, Place, Situation, Time - Mood Mood: Anxious - Affect Affect: Constricted - Formal Thought Process Formal Thought Process: Delusions, Paranoia, Loosening of associations - Homicidal Ideation Homicidal Ideation: No
--- NOTE | 2017-09-06 09:53 | PN ---
DATE: 09/06/2017 SUBJECTIVE: The patient is seen and examined. Interim events noted. The patient is seen for Dr. Samaniego while he is away. The patient remains in Geropsych Unit. The patient is awake, responsive, and ambulatory, taking care of herself. Denies any specific medical complaints. No chest pain. No shortness of breath. PHYSICAL EXAMINATION: GENERAL: The patient is in no acute distress. VITAL SIGNS: Stable. HEART: S1 and S2, normal and regular. LUNGS: Good bilateral air exchange. ABDOMEN: Soft and nontender. EXTREMITIES: No edema. No calf swelling. No tenderness. No acute ischemia. CENTRAL NERVOUS SYSTEM: Essentially unchanged. DIAGNOSTIC DATA: Available diagnostic data reviewed. PLAN: Overall, the patient's general medical condition is stable. Plan as ordered. Walter Connelly MD
--- NOTE | 2017-09-06 17:33 | PCM.PYCHPN ---
Psychiatric Progress Note - Psychiatric Progress Note Patient seen today, length of contact: pt seen and evaluated Patient Chief Complaint: pt is very paranoid and anxious today and pacing still with poor insight and need stabilization. Medication Change: Yes (will increase seroquel) Mental Status Examination - Cognitive Function Orientation: Person, Place, Situation, Time Attention: Poor Concentration: Poor Association: WNL Fund of Knowledge: WNL - Mood Mood: Anxious - Affect Affect: Constricted - Formal Thought Process Formal Thought Process: Delusions, Paranoia, Loosening of associations - Suicidal Ideation Suicidal Ideation: No - Homicidal Ideation Homicidal Ideation: No Goal/Treatment Plan - Goal/Treatment Plan Need for Continued Stay: Remain at risks for inpatient hospitalization, Severe depression anxiety, Discharge may exacerbated symptoms Progress Toward Problem(s) and Goals/Treatment Plan: will increase seroquel adding as 25 mg at hs and engage pt in therapy and groups.
--- NOTE | 2017-09-07 09:21 | PN ---
DATE: 09/07/2017 SUBJECTIVE: The patient is seen and examined. Interim events noted. Psychiatric followup and intervention noted and appreciated. The patient remains in [facility], speaking, arousable, feels okay. Denies any specific medical complaints. No specific issue reported by nursing staff. PHYSICAL EXAMINATION: GENERAL: The patient is in no acute distress. VITAL SIGNS: Stable. HEART: S1 and S2, normal and regular. LUNGS: Good bilateral air exchange. ABDOMEN: Soft and nontender. EXTREMITIES: No edema, no calf swelling. No tenderness. No acute ischemia. CENTRAL NERVOUS SYSTEM: Essentially unchanged. DIAGNOSTIC DATA: Available diagnostic data reviewed. PLAN: Overall, the patient's general medical condition is stable. Plan as ordered. Walter Connelly MD
--- NOTE | 2017-09-07 11:27 | PCM.PYCHPN ---
Psychiatric Progress Note - Psychiatric Progress Note Patient seen today, length of contact: Patient evaluated, case discussed with team, chart reviewed Patient Chief Complaint: "My and I were arguing." Problems Identified/Issues Discussed: Patient is calmer and more redirectable. She paces the hallways at times. She is less paranoid. She discussed the conflict she had with her prior to admission and does feel like her and sister are coordinated against her at times but denies that they are currently trying to harm her or persecute her. We discussed continued titration of Seroquel. She is more linear on conversation than upon admission. Medication Change: Yes (Increase Seroquel) Medical Record Reviewed: Yes Consults ordered or reviewed: Medicine consult Mental Status Examination - Cognitive Function Orientation: Person, Place, Situation Memory: Impaired Attention: Poor Concentration: Poor Association: WNL Fund of Knowledge: WN Decription of patient's judgement and insights: I/J limited by cognitive impairments - Mood Mood: Anxious - Affect Affect: Constricted - Speech Speech: Soft - Formal Thought Process Formal Thought Process: Paranoia, Loosening of associations Psychotic Thoughts and Behaviors: +Paranoia - Suicidal Ideation Suicidal Ideation: No - Homicidal Ideation Homicidal Ideation: No Goal/Treatment Plan - Goal/Treatment Plan Need for Continued Stay: Severe depression anxiety, Discharge may exacerbated symptoms Progress Toward Problem(s) and Goals/Treatment Plan: Dementia w/ behavioral disturbances; Schizoaffective Disorder -Individual and group therapy -Psychoeducation -Increase Seroquel to 100 mg PO AM/ 400 mg PO HS -Continue Zoloft 100 mg PO Daily -Continue Namenda 5 mg PO BID -Obtain collateral history -Disposition planning Estimated Date of D/C: 09/11/17
--- NOTE | 2017-09-08 09:02 | PN ---
DATE: 09/08/2017 MEDICAL FOLLOWUP SUBJECTIVE: The patient is seen and examined. Interim events noted. Psychiatric followup and intervention noted and appreciated. The patient remains in [facility]. Awake, responsive, feels okay. Denies any specific medical complaints. No chest pain, no shortness of breath. OBJECTIVE: GENERAL: The patient is in no acute distress. VITAL SIGNS: Stable. HEART: S1 and S2, normal and regular. LUNGS: Good bilateral air exchange. ABDOMEN: Soft and nontender. EXTREMITIES: No edema, no calf swelling. No tenderness. No acute ischemia. CENTRAL NERVOUS SYSTEM: Essentially unchanged. DIAGNOSTIC DATA: Available diagnostic data reviewed. PLAN: Overall, the patient's general medical condition is stable. Plan as ordered. Walter Connelly MD
--- NOTE | 2017-09-08 10:17 | PCM.PYCHPN ---
Psychiatric Progress Note - Psychiatric Progress Note Patient seen today, length of contact: Patient evaluated, case discussed with team, chart reviewed Patient Chief Complaint: "My and I were arguing." Problems Identified/Issues Discussed: Patient is calmer and more redirectable. She is less paranoid, but continues to have some odd behaviors, such as rubbing dry soap on herself. She is redirectable and some behaviors seems to be due to her dementia. No adverse effects to medications reported. Medication Change: No Medical Record Reviewed: Yes Consults ordered or reviewed: Medicine consult Mental Status Examination - Cognitive Function Orientation: Person, Place, Situation Memory: Impaired Attention: Poor Concentration: Poor Association: WNL Fund of Knowledge: WNL Decription of patient's judgement and insights: I/J limited by cognitive impairments - Mood Mood: Anxious - Affect Affect: Constricted - Speech Speech: Soft - Formal Thought Process Formal Thought Process: Paranoia, Loosening of associations Psychotic Thoughts and Behaviors: +Paranoia - Suicidal Ideation Suicidal Ideation: No - Homicidal Ideation Homicidal Ideation: No Goal/Treatment Plan - Goal/Treatment Plan Need for Continued Stay: Severe depression anxiety, Discharge may exacerbated symptoms Progress Toward Problem(s) and Goals/Treatment Plan: Dementia w/ behavioral disturbances; Schizoaffective Disorder -Individual and group therapy -Psychoeducation -Continue Seroquel 100 mg PO AM/ 400 mg PO HS -Continue Zoloft 100 mg PO Daily -Continue Namenda 5 mg PO BID -Disposition planning Estimated Date of D/C: 09/11/17
--- NOTE | 2017-09-09 07:56 | PN ---
DATE: 09/09/2017 MEDICAL FOLLOWUP SUBJECTIVE: The patient is seen and examined. Interim events noted. Psychiatry interventions noted and appreciated. The patient remains in [facility], sleeping, arousable, feels okay. Denies any specific medical complaints. No chest pain, no shortness of breath. PHYSICAL EXAMINATION: GENERAL: The patient is in no acute distress. VITAL SIGNS: Stable. HEART: S1 and S2, normal and regular. LUNGS: Good bilateral air exchange. ABDOMEN: Soft and nontender. EXTREMITIES: No edema, no calf swelling. No tenderness. No acute ischemia. CENTRAL NERVOUS SYSTEMS: Essentially unchanged. No specific issue reported by nursing staff. DIAGNOSTIC DATA: Available diagnostic data reviewed. PLAN: Overall, the patient is medically stable. Plan as ordered. Walter Connelly MD
--- NOTE | 2017-09-09 09:55 | PCM.PYCHPN ---
Psychiatric Progress Note - Psychiatric Progress Note Patient seen today, length of contact: Patient evaluated, case discussed with team, chart reviewed Patient Chief Complaint: "I'm okay." Problems Identified/Issues Discussed: Patient is calmer, more directable, more linear and less paranoid. She is improving clinically, but continues to have chronic deficits due to dementia. SW attempting to arrange a family meeting with the patient's family to discuss disposition. No adverse effects to medications reported. Medication Change: No Medical Record Reviewed: Yes Consults ordered or reviewed: Medicine consult Mental Status Examination - Cognitive Function Orientation: Person, Place, Situation Memory: Impaired Attention: Poor Concentration: Poor Association: WNL Fund of Knowledge: [facility] Decription of patient's judgement and insights: I/J limited by cognitive impairments - Mood Mood: Anxious - Affect Affect: Constricted - Speech Speech: Soft - Formal Thought Process Formal Thought Process: Paranoia, Loosening of associations Psychotic Thoughts and Behaviors: +mild paranoia - Suicidal Ideation Suicidal Ideation: No - Homicidal Ideation Homicidal Ideation: No Goal/Treatment Plan - Goal/Treatment Plan Need for Continued Stay: Severe depression anxiety, Discharge may exacerbated symptoms Progress Toward Problem(s) and Goals/Treatment Plan: Dementia w/ behavioral disturbances; Schizoaffective Disorder -Individual and group therapy -Psychoeducation -Continue Seroquel 100 mg PO AM/ 400 mg PO HS -Continue Zoloft 100 mg PO Daily -Continue Namenda 5 mg PO BID -Disposition planning Estimated Date of D/C: 09/11/17
--- NOTE | 2017-09-10 08:59 | PCM.PYCHPN ---
Psychiatric Progress Note - Psychiatric Progress Note Patient seen today, length of contact: Patient evaluated, case discussed with team, chart reviewed Patient Chief Complaint: "I'm okay." Problems Identified/Issues Discussed: Patient is calmer. She denies acute depression or paranoia. She does report feeling intermittently anxious. She continues to improve clinically. Family meeting arranged for today to discuss disposition. No adverse effects to medications reported. Medication Change: No Medical Record Reviewed: Yes Consults ordered or reviewed: Medicine consult Mental Status Examination - Cognitive Function Orientation: Person, Place, Situation Memory: Impaired Attention: Poor Concentration: Poor Association: WNL Fund of Knowledge: [facility] Decription of patient's judgement and insights: I/J limited by cognitive impairments - Mood Mood: Anxious - Affect Affect: Constricted - Speech Speech: Soft - Formal Thought Process Formal Thought Process: Loosening of associations Psychotic Thoughts and Behaviors: No AH/VH/paranoia - Suicidal Ideation Suicidal Ideation: No - Homicidal Ideation Homicidal Ideation: No Goal/Treatment Plan - Goal/Treatment Plan Need for Continued Stay: Severe depression anxiety, Discharge may exacerbated symptoms Progress Toward Problem(s) and Goals/Treatment Plan: Dementia w/ behavioral disturbances; Schizoaffective Disorder -Individual and group therapy -Psychoeducation -Continue Seroquel 100 mg PO AM/ 400 mg PO HS -Continue Zoloft 100 mg PO Daily -Continue Namenda 5 mg PO BID -Disposition planning Estimated Date of D/C: 09/11/17
--- NOTE | 2017-09-10 09:07 | PN ---
DATE: 09/10/2017 SUBJECTIVE: The patient is seen and examined. Interim events noted. Psychiatric followup and interventions noted and appreciated. The patient remains in [facility]. Denies any specific medical complaints, eating and no problem with urination. No chest pain, no shortness of breath. PHYSICAL EXAMINATION: GENERAL: The patient is in no acute distress. VITAL SIGNS: Stable. Physical exam is essentially unchanged. DIAGNOSTIC DATA: Available diagnostic data reviewed. PLAN: Overall, the patient is medically stable. Plan as ordered. Walter Connelly MD
[2017-09-11 05:49] VITALS: BP 112/58; PULSE 89; RESP 18; TEMP 97.9
--- NOTE | 2017-09-11 09:14 | PN ---
DATE: 09/11/2017 SUBJECTIVE: The patient is seen and examined. Interim events noted. The patient remains in Geropsychiatric Unit. Psychiatric followup and interventions noted and appreciated. The patient is sleepy, arousable and feels okay. She denies any chest pain or shortness of breath. PHYSICAL EXAMINATION: GENERAL: The patient is in no acute distress. VITAL SIGNS: Stable. Physical exam is essentially unchanged. DIAGNOSTIC DATA: Available diagnostic data reviewed. ASSESSMENT AND PLAN: Overall, the patient's general medical condition is stable. Plan as ordered. Walter Connelly MD
[2017-09-11] MEDS ORDERED: Cholecalciferol 400 Intl Units Tab PO SCH (09:30)
--- NOTE | 2017-09-11 09:31 | PCM.PYCHDC ---
Mental Status Examination - Mental Status Examination Orientation: Person, Place, Situation Memory: Impaired (Impaired memory, attention, concentration, association, knowledge due to chronic dementia) Mood: Neutral Affect: Broad Speech: Appropriate Attention: Poor Concentration: Poor Association: Loose Fund of Knowledge: Poor Formal Thought Process: Loosening of associations Description of patient's judgement and insight: I/J limited by cognitive impairments Psychotic Thoughts and Behaviors: No AH/VH/paranoia Suicidal Ideation: No Current Homicidal Ideation?: No Discharge Summary - Discharge Note Reason for Hospitalization: HPI: 62 yo female w/ h/o depression, recently discharged from [facility], presents w/ worsening paranoia, agitation and depression. She feels very anxious and is worried that her is trying to harm her or her son and that her sister and her and colluding against her. PPHx: H/o depression and tx w/ Dr. Lin; recently discharged from [facility] on Zoloft, Seroquel and Namenda. PMHx: Breast CA s/p mastectomy, currently receiving chemotherapy SHx: From [place]; lives w/ sister; denies drugs/etoh ALL: NKDA Consultations:: List each consultation separately and include: 1. Reason for request. 2. Findings. 3. Follow-up Consultations: Medicine consult Summary of Hospital Course include:: 1. Description of specific treatment plan utilized for patients during their course of treatmen. 2. Summarize the time- course for resolution of acute symptoms and/or regressed behaviors. 3. Describe issues identified and worked on during hospitalization. 4. Describe medication utilized. 5. Describe medical problems identified and treated. 6. Reassessment of suicide risk Summary of Hospital Course: Patient admitted to the geriatric psychiatry unit. Individual and group therapy were provided. Patient was stabilized on Zoloft, Seroquel and Namenda. Psychoeducation provided to the family re: patient's chronic cognitive impairment. Patient is currently at her baseline of functioning. No current AH /VH/paranoia/delusions. No SI/HI. She is psychiatrically stable for discharge. - Diagnosis (1) Dementia with behavioral disturbance Current Visit: Yes Status: Chronic (2) Schizoaffective disorder Current Visit: Yes Status: Chronic - Final Diagnosis (DSM 5) Condition upon Discharge: STABLE DSM 5: Dementia with behavioral disturbances; Schizoaffective Disorder Disposition: HOME/ ROUTINE Follow-up Treatment Plan: Dementia w/ behavioral disturbances; Schizoaffective Disorder -Individual and group therapy -Psychoeducation -Continue Seroquel 100 mg PO AM/ 400 mg PO HS -Continue Zoloft 100 mg PO Daily -Continue Namenda 5 mg PO BID -Vitamin D -Dietitian referral -Disposition planning Prescriptions/Medication Reconciliation: Memantine [Namenda] 5 mg PO BID #60 tab QUEtiapine [Seroquel] 100 mg PO DAILY #30 tab - Smoking Cessation Smoking Cessation Medication prescribed: No Reason for not providing: Not indicated - Antipsychotic Medications Pt discharged on 2 or more routine antipsychotic medications: No
== END 2017-09-11 13:50 | disposition home or self-care (01) | DRG 430 ==
LOC: H.ER 21:26 → H.ERHOLD 09-04 06:23 → H.STEP 09-04 10:56
PROVIDERS: ADMIT Psychiatry & Neurology Psychiatry; ATTEND Psychiatry & Neurology Psychiatry
PROC: GZHZZZZ Group Psychotherapy (ICD-10-PCS; principal; 2017-09-04)
PROC: GZ58ZZZ Individual Psychotherapy, Cognitive-Behavioral (ICD-10-PCS; 2017-09-04)
DX: F32.3 Major depressive disorder, single episode, severe with psychotic features (principal); F03.91 Unspecified dementia, unspecified severity, with behavioral disturbance; F90.9 Attention-deficit hyperactivity disorder, unspecified type; F41.9 Anxiety disorder, unspecified; D72.829 Elevated white blood cell count, unspecified; Z85.3 Personal history of malignant neoplasm of breast; Z90.12 Acquired absence of left breast and nipple; Z92.21 Personal history of antineoplastic chemotherapy; Z79.899 Other long term (current) drug therapy